=== PATIENT | male | born 1955 | race Caucasian/White ===

== ENCOUNTER 2020-09-08 11:00 | Observation (INO) | payer BC ==
[2020-09-08] MEDS ORDERED: Pantoprazole 40 MG Vial IVPUSH ONE (11:01)
[2020-09-08] MEDS ORDERED: Famotidine 20 MG/2 ML SDV IVPUSH ONE (11:01)
--- NOTE | 2020-09-08 11:01 | EDM.PDOC ---
ED HPI GENERAL MEDICAL PROBLEM - General Chief Complaint: Abdominal Pain Stated Complaint: Epigastric Pain Time Seen by Provider: 09/08/20 11:01 Source of Information: Reports: Patient, Old Records ([facility] chart/EMR) History Limitations: Reports: No Limitations - History of Present Illness INITIAL COMMENTS - FREE TEXT/NARRATIVE: The patient drove himself to the emergency room via private automobile for evaluation of initial 9/10 epigastric pressure, ache, and mild flatulence with symptoms starting about 1400 hrs. yesterday afternoon. The patient did have [place] food at noon in [place] yesterday with symptoms refractory to 1000 mg of Tylenol taken at 1630 hrs. and additional 60 mls of Pepto-Bismol at 1900 hrs. yesterday evening. His symptoms have improved somewhat to 6/10 on arrival, although the patient could not sleep throughout the night. He did have some possible mild diaphoresis at time of his severe pain, however no gross hematuria, colic, or other UTI symptoms. The patient has had similar symptoms in the past, including after Thanksgiving and [place] dinners last year and also about 4 months ago with no previous GI work-up. He denies any specific fatty food intolerance, however. No recent history of nausea, diarrhea, melena, gross hematochezia, etc. with normal bowel movement yesterday afternoon. The patient denies any chest pain/pressure, heart flutter, dizziness, orthostasis, orthopnea, paresthesias, recent decreased exercise tolerance, or any other anginal-type symptoms. The patient also denies any recent fever, cough, wheezing, dyspnea, etc.. Onset: Gradual Onset Date: 09/07/20 Onset Time: 14:00 Duration: Constant, Improving Location: Reports: Abdomen. Denies: Head, Face, Neck, Chest, Back, Pelvis, Upper Extremity, Left, Upper Extremity, Right, Radiates to Quality: Reports: Ache, Pressure, Same as Previous Episode Severity: Moderate Improves with: Reports: Medication Worsens with: Reports: None Context: Reports: Other (As above). 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 Denies: Allergic Rhinitis, Cataract, Glaucoma, Hard of Hearing, Macular Degeneration, Otitis Media, Retinal Detachment Other HEENT History: Patient wears reading glasses. Chronic bilateral tinnitus since his 20s. Cardiovascular History: Reports: High Cholesterol, Hypertension. Denies: Afib, Aneurysm, Arrhythmia, Blood Clots/VTE/DVT, CAD, Cardiomyopathy, Heart Failure, Heart Murmur, MN, PTCA, PVD, Stents, Syncope Respiratory History: Reports: None. Denies: Asthma, Bronchitis, Recurrent, COPD, Intubation, Difficult, Intubation, Previous, PE, Pneumonia, Recurrent, Pneumothorax, Sleep Apnea, TB Gastrointestinal History: Reports: Colon Polyp, Diverticulosis (Diverticulosis by CT scan.), GERD, Other (See Below). Denies: Bowel Obstruction, Celiac Disease, Cholelithiasis, Chronic Constipation, Chronic Diarrhea, Fecal Incontinence, Gastritis, GI Bleed, Hepatitis, Inflammatory Bowel Disease, Irritable Bowel Syndrome, Jaundice, Pancreatitis, PUD Other Gastrointestinal History: Benign colonic polyps diagnosed by colonoscopy in 2015 as below. Genitourinary History: Reports: BPH, Renal Calculus, Other (See Below). Denies: Acute Renal Failure, Chronic Renal Insuffiency, STD, Urinary Incontinence, UTI, Recurrent Other Genitourinary History: Probable left-sided urolithiasis on 05/06/2009 with spontaneous passage. Musculoskeletal History: Reports: Arthritis, Back Pain, Chronic, Fracture, Osteoarthritis, Other (See Below). Denies: Amputation, Gout, Neck Pain, Chronic, RA, SLE Other Musculoskeletal History: Left-sided clavicular fracture at age 13. Mild scoliosis with previous of borderline right-sided radiculopathy at L4 with multivessel degenerative disease and some lateral L4 right compartment compression with no surgery to this point. Neurological History: Reports: None. Denies: Cerebral Aneurysms, Concussion, CVA, Headaches, Chronic, Head Trauma, Migraines, MS, Neuropathy, Peripheral, Parkinson's, Seizure, TIA Psychiatric History: Reports: None. Denies: Abuse, Victim of, ADD, ADHD, Addiction, Anxiety, Depression, Psych Hospitalization(s), PTSD, Suicide Attempt, Suicidal Ideation Endocrine/Metabolic History: Reports: None. Denies: Diabetes, Type I, Diabetes, Type II, Diabetes Mellitus, Type 3c, Hypothyroidism, IDDM, Obesity/BMI 30+ Hematologic History: Reports: None. Denies: Anemia, Blood Transfusion(s), Iron Deficiency Immunologic History: Reports: None. Denies: AIDS, HIV, SLE Oncologic (Cancer) History: Reports: None. Denies: Basal Cell Carcinoma, Colon, Hodgkin's Lymphoma, Leukemia, Lymphoma, Malignant Melanoma, Non-Hodgkin's Lymphoma, Prostate, Squamous Cell Carcinoma Dermatologic History: Reports: None. Denies: Eczema, Psoriasis - Infectious Disease History Infectious Disease History: Reports: Chicken Pox, Mumps. Denies: C-Difficile, Measles, Meningitis, Mononucleosis, MRSA, Rheumatic Fever, Rubella, Shingles, TB, VRE - Past Surgical History Head Surgeries/Procedures: Reports: None HEENT Surgical History: Reports: LASIK, Oral Surgery, Other (See Below). Denies: Adenoidectomy, Cataract Surgery, Eye Surgery, Laser Surgery, Myringotomy w Tube(s), Naso-Sinus Surgery, Tonsillectomy Other HEENT Surgeries/Procedures: LASIK in about 2013. [place] teeth extraction x4 in the with additional tooth extractions. Cardiovascular Surgical History: Reports: None. Denies: Varicose Respiratory Surgical History: Reports: None. Denies: Thoracentesis GI Surgical History: Reports: Colonoscopy, Polypectomy, Other (See Below). Denies: Appendectomy, Cholecystectomy, EGD, Hernia, Abdominal, Hernia, Inguinal, Hernia Repair/Other Other GI Surgeries/Procedures: Colonoscopy in about 2014 with multiple polyp removals as above. Male Surgical History: Reports: Circumcision, Other (See Below). Denies: TURP-Transurethral Resection of Prostate, Vasectomy Other Male Surgeries/Procedures: Circumcision as an infant. Endocrine Surgical History: Reports: None. Denies: Thyroid Biopsy Neurological Surgical History: Reports: None. Denies: C-Spine, Discectomy, Laminectomy, Lumbar Spine, Sacral Spine, Spinal Fusion, Thoracic Spine, Vertebroplasty Musculoskeletal Surgical History: Reports: Arthroscopic Knee, Arthroscopic Procedure, Other (See Below). Denies: Carpal Tunnel, Ganglion Cyst, Joint Replacement, ORIF, Shoulder Surgery Other Musculoskeletal Surgeries/Procedures:: Right knee arthroscopic for torn meniscus in about 1987 with repeat procedure in about 2002. Oncologic Surgical History: Reports: None Dermatological Surgical History: Reports: None - Past Imaging History Past Imaging History: Reports: CAT Scan (CT of the brain on 02/10/2018. CT of the abdomen and pelvis on 05/09/2009.), MRI (MRI of the lumbar spine on 04/25/2020.) Social & Family History - Family History HEENT: Reports: None. Denies: Glaucoma, Macular Degeneration, Retinal Detachment Cardiac: Reports: PVD/COD, Other (See Below). Denies: Afib, Aneurysm, Arrhythmia, Blood Clots/VTE/DVT, Bypass, CAD, Heart Failure, High Cholesterol, Hypertension, MN, Pacemaker, Stent, Syncope Other Cardiac Family History: Brother with carotid occlusive disease with stent placement at age 66. Respiratory: Reports: None. Denies: Asthma, COPD, PE, Pneumothorax, Sleep Apnea GI: Denies: Celiac Disease, Cholelithiasis, Colon Polyps, GERD, GI bleed, Inflammatory Bowel Disease, Irritable Bowel Syndrome, PUD : Reports: None. Denies: Renal Calculus, Renal Disease/Insufficiency OBGYN: Reports: None. Denies: Endometriosis, Recurrent Spontaneous Musculoskeletal: Reports: None. Denies: Gout, RA, SLE Neurological: Reports: TIA, Other (See Below). Denies: Alzheimers Disease, Cerebral Aneurysms, CVA, Dementia, Migraines, MS, Parkinson's, Seizure Other Neurological Family History: Brother with TIA at age 66 secondary to carotid occlusive disease Psychiatric: Reports: None. Denies: Abuse, Victim of, ADD, ADHD, Depression, Psych Hospitalization(s), Psychosis, PTSD, Suicide Attempt Endocrine/Metabolic: Reports: None. Denies: Diabetes, Type I, Diabetes, type II, Diabetes Mellitus, Type 3c, Hypothyroidism, IDDM Hematologic: Reports: None. Denies: Anemia, SLE Immunologic: Reports: None. Denies: AIDS, HIV, SLE Dermatologic: Reports: None. Denies: Eczema, Psoriasis Oncologic: Reports: Prostate, Other (See Below). Denies: Colon, Hodgkin's Lymphoma, Leukemia, Lymphoma, Metastatic, Non-Hodgkin's Lymphoma, Skin Other Oncologic Family History: Brother with history of prostate cancer and subsequent prostatectomy at about age 65. - Tobacco Use Tobacco Use Status *Q: Never Tobacco User Tobacco Use Within Last Twelve Months: No Used Tobacco, but Quit: No Smoking Cessation Information Provided To Patient: No Second Hand Smoke Exposure: No Second Hand Smoke Education Provided: No - Caffeine Use Caffeine Use: Reports: Soda (1 soda every 2 weeks). Denies: Coffee, Energy Drinks, Tea - Alcohol Use Alcohol Use History: Yes Days Per Week of Alcohol Use: 0 Number of Drinks Per Day: 1 Number of Drinks Per Day Comment: Usually wine coolers 12 times per month. No previous DWIs, problems with alcohol abuse, etc. 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 ED EXAM, GI/ABD - Physical Exam Exam: See Below Exam Limited By: No Limitations General Appearance: Alert, WD/WN, Moderate Distress Eyes: Bilateral: Normal Appearance (No nystagmus), EOMI (PERRLA) Ears: Normal External Exam, Normal Canal, Hearing Grossly Normal, Normal TMs Nose: Normal Inspection, Normal Mucosa, No Blood Throat/Mouth: Normal Inspection, Normal Lips, Normal Teeth, Normal Gums, Normal Oropharynx, Normal Voice, No Airway Compromise. No: Dysphagia, Perioral Cyanosis Head: Atraumatic, Normocephalic. No: Facial Swelling, Facial Tenderness, Sinus Tenderness Neck: Normal Inspection, Supple, Non-Tender, Full Range of Motion. No: Carotid Bruit, Lymphadenopathy (L), Lymphadenopathy (R), Thyromegaly Respiratory/Chest: No Respiratory Distress, Lungs Clear, Normal Breath Sounds, No Accessory Muscle Use, Chest Non-Tender. No: Pleural Rub, Retractions Cardiovascular: Normal Peripheral Pulses, Regular Rate, Rhythm, No Edema, No Gallop, No JVD, No Murmur, No Rub. No: Gallop/S3, Gallop/S4, Friction Rub GI/Abdominal Exam: Normal Bowel Sounds, Soft, Non-Tender, No Organomegaly, No Distention, No Abnormal Bruit, No Mass, Pelvis Stable. No: Guarding (Male) Exam: Deferred Rectal (Males) Exam: Deferred Back Exam: Normal Inspection. No: CVA Tenderness (L), CVA Tenderness (R), Muscle Spasm Extremities: Normal Inspection, Normal Range of Motion, Non-Tender, No Pedal Edema, Normal Capillary Refill. No: Akash's Sign Neurological: Alert, Oriented, CN II-XII Intact, Normal Cognition, Normal Gait, Normal Reflexes (Negative Babinski's), No Motor/Sensory Deficits Psychiatric: Normal Affect, Normal Mood Skin Exam: Warm, Dry, Intact, Normal Color, No Rash. No: Diaphoretic, Wound/Incision Lymphatic: No Adenopathy #1 Interpretation EKG Date: 09/08/20 Time: 11:25 Rhythm: Other (Sinus bradycardia) Rate (Beats/Min): 55 [place]: RAD-Right [place] Deviation (Extended right cardiac axis) P-Wave: Present QRS: Other (0.13 seconds representing progressive repolarization changes versus beginning complete right bundle branch block) ST-T: Other (New T wave inversion in leads I, II, and aVL with resolved T wave inversion in lead III and stable borderline T wave inversion in lead V1) QT: Normal SD/PQ Interval: 0.16 seconds with moderate poor R wave progression in the anterior leads Comparison: Change From Previous EKG (As above since distant EKG on 04/08/2002) EKG Interpretation Comments: 1. New lateral wall cardiac ischemia 2. Sinus bradycardia Course - Vital Signs Last Recorded V/S: Last Vital Signs Temp 36.4 C 09/08/20 11:02 Pulse 60 09/08/20 12:30 Resp 16 09/08/20 12:30 BP 139/69 09/08/20 12:30 Pulse Ox 100 09/08/20 12:30 Vital Signs - 24 hr 09/08/20 09/08/20 09/08/20 11:02 11:20 11:44 Temperature [ 36.4 C Temporal] Pulse, 68 70 63 Peripheral [ Pulse Oximetry] Respiratory 20 16 16 Rate Blood Pressure Blood Pressure 143/75 H 147/74 H 142/75 H [Left Upper Arm ] O2 Sat by Pulse 97 99 98 Oximetry 09/08/20 09/08/20 09/08/20 11:46 11:57 12:30 Temperature [ Temporal] Pulse, 69 60 Peripheral [ Pulse Oximetry] Respiratory 16 16 Rate Blood Pressure 142/75 H Blood Pressure 127/68 139/69 [Left Upper Arm ] O2 Sat by Pulse 98 100 Oximetry - Orders/Labs/Meds Orders: Active Orders 24 hr Category Date Time Status Cardiac Monitoring [RC] . DIRECTED Care 09/08/20 11:03 Active EKG Documentation Completion [RC] ASDIRECTED Care 09/08/20 11:03 Active Peripheral IV Care [RC] . DIRECTED Care 09/08/20 11:02 Active Peripheral IV Care [RC] . DIRECTED Care 09/08/20 11:48 Active Nothing Per Oral Diet [DIET] Diet 09/08/20 Breakfast Active Abdomen Pelvis w Cont [CT] Stat Exams 09/08/20 12:56 Ordered Abdomen Series w Chest 1V [CR] Stat Exams 09/08/20 11:01 Taken Chest PE [Ang Chest] [CT] Stat Exams 09/08/20 12:56 Ordered Venous Doppler Lwr Ext Bi [US] Urgent Exams 09/08/20 12:55 Ordered CULTURE URINE [RM] Stat Lab 09/08/20 11:01 Ordered UA W/MICROSCOPIC [URIN] Stat Lab 09/08/20 11:01 Ordered Nitroglycerin [Nitrostat] Med 09/08/20 11:40 Stat 0.4 mg SL ONETIME STA Sodium Chloride 0.9% [Saline Flush] Med 09/08/20 11:01 Active 10 ml FLUSH ASDIRECTED PRN Obtain Past Medical Record [OM.PC] Urgent Oth 09/08/20 11:01 Active Peripheral IV Insertion Adult [OM.PC] Stat Oth 09/08/20 11:01 Ordered Resuscitation Status Stat Resus Stat 09/08/20 11:01 Ordered Medication Orders Nitroglycerin (Nitrostat) 0.4 mg SL ONETIME STA Stop: 09/09/20 11:41 Last Admin: 09/08/20 11:46 Dose: 0.4 mg Documented by: RHETT Sodium Chloride (Saline Flush) 10 ml FLUSH ASDIRECTED PRN PRN Reason: Keep Vein Open Labs: Laboratory Tests 09/08/20 09/08/20 09/08/20 Range/Units 11:00 11:00 11:00 WBC 16.4 H (4.0-10.2) K/uL RBC 5.05 (4.33-5.41) M/uL Hgb 14.9 (13.1-16.8) g/dL Hct 44.5 (39.0-49.0) % MCV 88.1 (84.0-98.0) fL MCH 29.5 (28.2-33.3) pg MCHC 33.5 (31.7-36.0) g/dL RDW 14.5 H (11.2-14.1) % Plt Count 280 (150-350) K/uL Neut % (Auto) 80.4 H (45.0-80.0) % Lymph % (Auto) 10.4 (10.0-50.0) % [place] % (Auto) 7.6 (2.0-14.0) % Eos % (Auto) 1.4 (0.0-5.0) % Baso % (Auto) 0.2 (0.0-2.0) % Neut # (Auto) 13.16 H (1.40-7.00) K/uL Lymph # (Auto) 1.71 (0.50-3.50) K/uL [place] # (Auto) 1.25 H (0.00-1.00) K/uL Eos # (Auto) 0.23 (0.00-0.50) K/uL Baso # (Auto) 0.04 (0.00-0.20) K/uL PT 9.9 (9.5-12.0) SEC INR 1.0 APTT 23.2 L (24.5-32.8) SEC D-Dimer, Quantitative (0-400) ng/mL Sodium (136-145) mmol/L Potassium (3.5-5.1) mmol/L Chloride (98-107) mmol/L Carbon Dioxide (21.0-32.0) mmol/L BUN (7-18) mg/dL Creatinine (0.51-1.17) mg/dL Est Cr Clr Drug Dosing Estimated GFR (MDRD) mL/min Glucose (74-106) mg/dL Lactic Acid (0.4-2.0) mmol/L Uric Acid (2.6-7.2) mg/dL Calcium (8.5-10.1) mg/dL Magnesium (1.8-2.4) mg/dL Total Bilirubin (0.2-1.0) mg/dL AST (15-37) U/L ALT (12-78) U/L Alkaline Phosphatase (46-116) IU/L Creatine Kinase (26-308) U/L Creatine Kinase Index (0.0-2.5) % CK-MB (CK-2) (0.00-3.60) ng/mL Troponin I (0.000-0.056) ng/mL NT-Pro-B Natriuret Pep (0-125) pg/mL Total Protein (6.4-8.2) g/dL Albumin (3.4-5.0) g/dL Amylase 36 (25-115) U/L Lipase (73-393) U/L 09/08/20 09/08/20 09/08/20 Range/Units 11:00 11:00 11:00 WBC (4.0-10.2) K/uL RBC (4.33-5.41) M/uL Hgb (13.1-16.8) g/dL Hct (39.0-49.0) % MCV (84.0-98.0) fL MCH (28.2-33.3) pg MCHC (31.7-36.0) g/dL RDW (11.2-14.1) % Plt Count (150-350) K/uL Neut % (Auto) (45.0-80.0) % Lymph % (Auto) (10.0-50.0) % [place] % (Auto) (2.0-14.0) % Eos % (Auto) (0.0-5.0) % Baso % (Auto) (0.0-2.0) % Neut # (Auto) (1.40-7.00) K/uL Lymph # (Auto) (0.50-3.50) K/uL Wake # (Auto) (0.00-1.00) K/uL Eos # (Auto) (0.00-0.50) K/uL Baso # (Auto) (0.00-0.20) K/uL PT (9.5-12.0) SEC INR APTT (24.5-32.8) SEC D-Dimer, Quantitative 470 H (0-400) ng/mL Sodium 139 (136-145) mmol/L Potassium 3.9 (3.5-5.1) mmol/L Chloride 103 (98-107) mmol/L Carbon Dioxide 24.3 (21.0-32.0) mmol/L BUN 17 (7-18) mg/dL Creatinine 0.90 (0.51-1.17) mg/dL Est Cr Clr Drug Dosing TNP Estimated GFR (MDRD) > 60 mL/min Glucose 124 H (74-106) mg/dL Lactic Acid 1.5 (0.4-2.0) mmol/L Uric Acid 4.6 (2.6-7.2) mg/dL Calcium 8.5 (8.5-10.1) mg/dL Magnesium 2.0 (1.8-2.4) mg/dL Total Bilirubin 1.0 (0.2-1.0) mg/dL AST 19 (15-37) U/L ALT 29 (12-78) U/L Alkaline Phosphatase 58 (46-116) IU/L Creatine Kinase 144 (26-308) U/L Creatine Kinase Index 1.3 (0.0-2.5) % CK-MB (CK-2) 1.90 (0.00-3.60) ng/mL Troponin I 0.031 (0.000-0.056) ng/mL NT-Pro-B Natriuret Pep 1279 H (0-125) pg/mL Total Protein 6.9 (6.4-8.2) g/dL Albumin 3.8 (3.4-5.0) g/dL Amylase (25-115) U/L Lipase 55 L (73-393) U/L Meds: Medications Generic Name Dose Route Start Last Admin Trade Name Freq PRN Reason Stop Dose Admin Nitroglycerin 0.4 mg 09/08/20 11:40 09/08/20 11:46 Nitrostat SL 09/09/20 11:41 0.4 mg ONETIME STA Administration Sodium Chloride 10 ml 09/08/20 11:01 Saline Flush FLUSH ASDIRECTED PRN Keep Vein Open Discontinued Medications Generic Name Dose Route Start Last Admin Trade Name Freq PRN Reason Stop Dose Admin Al Hydroxide/Mg Hydroxide 30 ml 09/08/20 12:29 09/08/20 12:40 Gi Cocktail PO 09/08/20 12:30 30 ml ONETIME ONE Administration Aspirin 324 mg 09/08/20 12:58 09/08/20 13:01 Aspirin CHEW 09/08/20 12:59 324 mg ONETIME ONE Administration Famotidine 40 mg 09/08/20 11:01 09/08/20 11:13 Pepcid IVPUSH 09/08/20 11:02 40 mg ONETIME ONE Administration Levofloxacin/Dextrose 500 mg/ 100 mls @ 100 mls/hr 09/08/20 11:45 09/08/20 11:51 Premix IV 09/08/20 12:44 100 mls/hr ONETIME ONE Administration Iopamidol 100 ml 09/08/20 13:04 Isovue-370 (76%) IVPUSH 09/08/20 13:05 ONETIME ONE Pantoprazole Sodium 40 mg 09/08/20 11:01 09/08/20 11:16 Protonix Iv IVPUSH 09/08/20 11:02 40 mg ONETIME ONE Administration Ticagrelor 180 mg 09/08/20 12:58 09/08/20 13:02 Brilinta PO 09/08/20 12:59 180 mg ONETIME ONE Administration Departure - Departure Time of Disposition: 13:05 Disposition: Refer to Observation Condition: Good Clinical Impression: Atypical chest pain, Peptic reflux disease, D-dimer, elevated Abdominal pain Qualifiers: Abdominal location: epigastric Qualified Code(s): R10.13 - Epigastric pain Osteoarthritis Qualifiers: Osteoarthritis location: multiple joints Osteoarthritis type: primary Qualified Code(s): M89.49 - Other hypertrophic osteoarthropathy, multiple sites CHF (congestive heart failure) Qualifiers: Heart failure type: unspecified Heart failure chronicity: acute Qualified Code(s): I50.9 - Heart failure, unspecified Hyperlipidemia Qualifiers: Hyperlipidemia type: unspecified Qualified Code(s): E78.5 - Hyperlipidemia, unspecified Hypertension Qualifiers: Hypertension type: essential hypertension Qualified Code(s): I10 - Essential (primary) hypertension - Discharge Information *PRESCRIPTION DRUG MONITORING PROGRAM REVIEWED*: Not Applicable *COPY OF PRESCRIPTION DRUG MONITORING REPORT IN PATIENT SHIRA: Not Applicable Sepsis Event Note (ED) - Focused Exam Vital Signs: Vital Signs Temp Pulse Resp BP BP Pulse Ox 09/08/20 12:30 60 16 139/69 100 09/08/20 11:57 69 16 127/68 98 09/08/20 11:46 142/75 H 09/08/20 11:44 63 16 142/75 H 98 09/08/20 11:20 70 16 147/74 H 99 09/08/20 11:02 36.4 C 68 20 143/75 H 97 - Problem List & Annotations (1) Abdominal pain SNOMED Code(s): 29147934 Code(s): R10.9 - UNSPECIFIED ABDOMINAL PAIN Status: Acute Priority: High Current Visit: Yes Onset Date: 09/07/20 Annotation/Comment:: Symptoms improved in the emergency room with high-dose IV Pepcid and IV Protonix with somewhat refractory symptoms and additional green lizard required. Suspect cholelithiasis with normal amylase and lipase. No significant leukocytosis with no fever. Lactic acid level is normal with no clinical evidence of sepsis. IV Levaquin initiated in the emergency room with initiation of IV Flagyl shortly after admission. Abdominal CT scan with IV contrast to be conducted shortly after admission. Further surgical/GI consultation/work-up depending on his clinical course. Qualifiers: Abdominal location: epigastric Qualified Code(s): R10.13 - Epigastric pain (2) Atypical chest pain SNOMED Code(s): 616299741 Code(s): R07.89 - OTHER CHEST PAIN Status: Acute Priority: High Current Visit: Yes Onset Date: 09/08/20 Annotation/Comment:: Note evidence of lateral wall cardiac ischemia with no true chest pain or anginal type symptoms prior to arrival to this facility. Note that ASA and Brilinta were given after EKG was obtained and prior to admission. Secondary to d-dimer elevation patient will also receive subcutaneous Lovenox at the cardiac/VTE dose with venous Doppler studies and a CT of the chest to be conducted shortly after admission. Initiate standard rule out [place] orders. Cardiology consultation depending on his clinical course. (3) CHF (congestive heart failure) SNOMED Code(s): 74766027 Code(s): I50.9 - HEART FAILURE, UNSPECIFIED Status: Acute Priority: High Current Visit: Yes Onset Date: 09/08/20 Annotation/Comment:: Note BNP elevation. Initiate IV Lasix with caution shortly after admission. Consider echocardiogram on an outpatient basis. Qualifiers: Heart failure type: unspecified Heart failure chronicity: acute Qualified Code(s): I50.9 - Heart failure, unspecified (4) D-dimer, elevated SNOMED Code(s): 203940700 Code(s): R79.89 - OTHER SPECIFIED ABNORMAL FINDINGS OF BLOOD CHEMISTRY Status: Acute Priority: High Current Visit: Yes Onset Date: 09/08/20 Annotation/Comment:: As above (5) Osteoarthritis SNOMED Code(s): 807849240 Code(s): M19.90 - UNSPECIFIED OSTEOARTHRITIS, UNSPECIFIED SITE Status: Chronic Priority: Medium Current Visit: Yes Annotation/Comment:: Stable by history. Qualifiers: Osteoarthritis location: multiple joints Osteoarthritis type: primary Qualified Code(s): M89.49 - Other hypertrophic osteoarthropathy, multiple sites (6) Peptic reflux disease SNOMED Code(s): 241721227 Code(s): K21.9 - GASTRO-ESOPHAGEAL REFLUX DISEASE WITHOUT ESOPHAGITIS Status: Chronic Priority: Medium Current Visit: Yes Annotation/Comment:: High-dose IV Pepcid and IV Protonix given as above. (7) Hyperlipidemia SNOMED Code(s): 37907763 Code(s): E78.5 - HYPERLIPIDEMIA, UNSPECIFIED Status: Chronic Priority: Medium Current Visit: Yes Annotation/Comment:: Currently under therapy. Lipid panel and glycosylated hemoglobin in the a.m. Qualifiers: Hyperlipidemia type: unspecified Qualified Code(s): E78.5 - Hyperlipidemia, unspecified (8) Hypertension SNOMED Code(s): 42824798 Code(s): I10 - ESSENTIAL (PRIMARY) HYPERTENSION Status: Chronic Priority: Medium Current Visit: Yes Annotation/Comment:: Currently under therapy. Blood pressure stable in the emergency room. Qualifiers: Hypertension type: essential hypertension Qualified Code(s): I10 - Essential (primary) hypertension - Problem List Review Problem List Initiated/Reviewed/Updated: Yes - My Orders Last 24 Hours: My Active Orders 09/08/20 Breakfast Nothing Per Oral Diet [DIET] 09/08/20 11:01 Abdomen Series w Chest 1V [CR] Stat CULTURE URINE [RM] Stat UA W/MICROSCOPIC [URIN] Stat Sodium Chloride 0.9% [Saline Flush] 10 ml FLUSH ASDIRECTED PRN Obtain Past Medical Record [OM.PC] Urgent Peripheral IV Insertion Adult [OM.PC] Stat Resuscitation Status Stat 09/08/20 11:02 Peripheral IV Care [RC] . DIRECTED 09/08/20 11:03 Cardiac Monitoring [RC] . DIRECTED EKG Documentation Completion [RC] ASDIRECTED 09/08/20 11:40 Nitroglycerin [Nitrostat] 0.4 mg SL ONETIME STA 09/08/20 11:48 Peripheral IV Care [RC] . DIRECTED 09/08/20 12:55 Venous Doppler Lwr Ext Bi [US] Urgent 09/08/20 12:56 Abdomen Pelvis w Cont [CT] Stat Chest PE [Ang Chest] [CT] Stat - Assessment/Plan Admission H&P: Please use this note as an admission H&P Last 24 Hours: My Active Orders 09/08/20 Breakfast Nothing Per Oral Diet [DIET] 09/08/20 11:01 Abdomen Series w Chest 1V [CR] Stat CULTURE URINE [RM] Stat UA W/MICROSCOPIC [URIN] Stat Sodium Chloride 0.9% [Saline Flush] 10 ml FLUSH ASDIRECTED PRN Obtain Past Medical Record [OM.PC] Urgent Peripheral IV Insertion Adult [OM.PC] Stat Resuscitation Status Stat 09/08/20 11:02 Peripheral IV Care [RC] . DIRECTED 09/08/20 11:03 Cardiac Monitoring [RC] . DIRECTED EKG Documentation Completion [RC] ASDIRECTED 09/08/20 11:40 Nitroglycerin [Nitrostat] 0.4 mg SL ONETIME STA 09/08/20 11:48 Peripheral IV Care [RC] . DIRECTED 09/08/20 12:55 Venous Doppler Lwr Ext Bi [US] Urgent 09/08/20 12:56 Abdomen Pelvis w Cont [CT] Stat Chest PE [Ang Chest] [CT] Stat Assessment:: As above. Plan: As above. Extensive precautions were given to the patient, who is in agreement with the treatment plan. The patient's condition is stable enough for observation status and general supervision.
[2020-09-08 11:36] LABS: CHLORIDE,CL 103 mmol/L (98-107); SODIUM,NA 139 mmol/L (136-145)
[2020-09-08] MEDS ORDERED: Nitroglycerin 0.4 MG Tab.SL SL STA (11:40)
[2020-09-08 11:43] LABS: PTT,PARTIAL THROMBOPLSTIN TIME 23.2 SEC (24.5-32.8)
[2020-09-08] MEDS ORDERED: Levofloxacin/Dextrose 5%-Water 500 MG in Premix Bag 1 BAG IV ONE (11:45)
[2020-09-08] MEDS ORDERED: GI Cocktail Oral Solution 30 ML PO ONE (12:29)
[2020-09-08] MEDS ORDERED: Ticagrelor 90 MG Tab PO ONE (12:58)
[2020-09-08] MEDS ORDERED: Aspirin 81 MG Tab.Chew CHEW ONE (12:58)
[2020-09-08] MEDS ORDERED: Iopamidol 755 Mg/ML 100 ML Bottle IVPUSH ONE (13:04)
[2020-09-08] MEDS ORDERED: Temazepam 15 MG Cap PO PRN (13:18)
[2020-09-08] MEDS ORDERED: Sodium Chloride 0.9% 10 ML Syringe FLUSH PRN (13:18)
[2020-09-08] MEDS ORDERED: Enoxaparin 80 MG/0.8 ML Syringe SUBCUT SCH (14:00)
[2020-09-08] MEDS ORDERED: Acetaminophen 325 MG Tab PO PRN (14:00)
[2020-09-08] MEDS: Furosemide 40 MG/4 ML VIAL IVPUSH SCH ×2 (14:10→21:32)
[2020-09-08] MEDS: metroNIDAZOLE/Normal Saline 500 MG in Premix Bag 1 BAG IV SCH ×2 (14:10→21:32)
[2020-09-08] MEDS: Sodium Chloride 0.9% 10 ML Syringe FLUSH PRN ×2 (14:11→21:33)
[2020-09-08] MEDS: Potassium Chloride 20 MEQ Tab.ER PO SCH (17:32)
[2020-09-08] MEDS: Ezetimibe 10 MG Tab PO SCH (20:04)
[2020-09-08] MEDS: Lisinopril 5 MG Tab PO SCH (20:04)
[2020-09-09] MEDS: Enoxaparin 80 MG/0.8 ML Syringe SUBCUT SCH ×2 (05:14→17:55)
[2020-09-09] MEDS: Sodium Chloride 0.9% 10 ML Syringe FLUSH PRN ×2 (05:14→14:07)
[2020-09-09] MEDS: Furosemide 40 MG/4 ML VIAL IVPUSH SCH ×3 (05:14→21:46)
[2020-09-09] MEDS: metroNIDAZOLE/Normal Saline 500 MG in Premix Bag 1 BAG IV SCH ×3 (05:15→21:47)
[2020-09-09 07:41] LABS: HEMOGLOBIN A1C 5.9 % (4.3-5.7)
[2020-09-09 08:16] LABS: CHLORIDE,CL 100 mmol/L (98-107); SODIUM,NA 138 mmol/L (136-145)
[2020-09-09] MEDS: Potassium Chloride 20 MEQ Tab.ER PO SCH ×3 (08:51→17:55)
--- NOTE | 2020-09-09 09:48 | PCM.PN ---
- General Info Date of Service: 09/09/20 Admission Dx/Problem (Free Text): 1. Abdominal pain with probable acute holecystitis 2. Atypical chest pain 3. D-dimer elevation 4. CHF Functional Status: Reports: Pain Controlled, Tolerating Diet, Ambulating, Urinating. Denies: New Symptoms, Incentive Spirometry Pain Score: 0 - Review of Systems General: Denies: Fever (Afebrile this morning with maximum temperature of 37.7 degrees during the last 24 hours), Weakness, Fatigue, Malaise, Chills, Night Sweats, Appetite (Improving slowly) HEENT: Reports: No Symptoms. Denies: Contact Lenses, Dysphasia, Ear Pain, Eye Pain, Glasses, Headaches, Post Nasal Drip, Sinus Congestion, Sore Throat, Rhinitis, Visual Changes Pulmonary: Reports: No Symptoms. Denies: Shortness of Breath, Pleuritic Chest Pain, Cough Cardiovascular: Reports: No Symptoms. Denies: Chest Pain, Palpitations, Dyspnea on Exertion, Orthopnea, PND, Edema, Lightheadedness Gastrointestinal: Reports: No Symptoms. Denies: Abdominal Pain, Constipation (, Although no bowel movement since admission with minimal oral intake), Decreased Appetite, Diarrhea, Difficulty Swallowing, Flatus, Hematochezia, Melena, Nausea, Vomiting Genitourinary: Reports: No Symptoms. Denies: Dysuria, Frequency, Burning, Pain, Urgency, Hematuria, Retention, Flank Pain Musculoskeletal: Reports: No Symptoms. Denies: Neck Pain, Shoulder Pain, Back Pain Skin: Reports: Bruising (Mild ecchymosis at subcutaneous injection sites). Denies: Cyanosis, Jaundice, Mottled, Pallor, Diaphoresis, Dryness, Pruritis, Rash Neurological: Reports: No Symptoms. Denies: Confusion, Dizziness, Numbness, P aresthesia, Pre-Existing Deficit, Tingling, Weakness Psychiatric: Reports: No Symptoms. Denies: Confusion, Depression, Anxiety, Agitation, Cravings, Hallucinations - Patient Data Vitals - Most Recent: Last Vital Signs Temp 36.6 C 09/09/20 07:38 Pulse 89 09/09/20 07:38 Resp 16 09/09/20 07:38 BP 117/78 09/09/20 07:38 Pulse Ox 96 09/09/20 07:38 Vital Signs - 24 hr 09/08/20 09/08/20 09/08/20 11:02 11:20 11:44 Temperature [ Oral] Temperature [ 36.4 C Temporal] Pulse, 68 70 63 Peripheral [ Pulse Oximetry] Respiratory 20 16 16 Rate Blood Pressure Blood Pressure 143/75 H 147/74 H 142/75 H [Left Upper Arm ] O2 Sat by Pulse 97 99 98 Oximetry 09/08/20 09/08/20 09/08/20 11:46 11:57 12:30 Temperature [ Oral] Temperature [ Temporal] Pulse, 69 60 Peripheral [ Pulse Oximetry] Respiratory 16 16 Rate Blood Pressure 142/75 H Blood Pressure 127/68 139/69 [Left Upper Arm ] O2 Sat by Pulse 98 100 Oximetry 09/08/20 09/08/20 09/08/20 13:41 16:00 18:00 Temperature [ Oral] Temperature [ 36.8 C 36.4 C 37.3 C Temporal] Pulse, 60 58 L 64 Peripheral [ Pulse Oximetry] Respiratory 16 16 17 Rate Blood Pressure Blood Pressure 134/71 138/79 137/71 [Left Upper Arm ] O2 Sat by Pulse 100 99 98 Oximetry 09/08/20 09/08/20 09/09/20 19:28 20:04 00:00 Temperature [ Oral] Temperature [ 37.5 C 37.7 C Temporal] Pulse, 68 73 Peripheral [ Pulse Oximetry] Respiratory 16 18 Rate Blood Pressure 122/75 Blood Pressure 122/75 124/75 [Left Upper Arm ] O2 Sat by Pulse 97 95 Oximetry 09/09/20 09/09/20 04:00 07:38 Temperature [ 36.9 C 36.6 C Oral] Temperature [ Temporal] Pulse, 82 89 Peripheral [ Pulse Oximetry] Respiratory 18 16 Rate Blood Pressure Blood Pressure 119/75 117/78 [Left Upper Arm ] O2 Sat by Pulse 96 96 Oximetry Weight - Most Recent: 90.174 kg I&O - Last 24 Hours: Intake & Output 09/08/20 09/09/20 09/09/20 22:59 06:59 14:59 Intake Total 240 400 Balance 240 400 Imaging Impressions - Last 24 Hours: Venous Doppler studies of the lower extremities on 09/08/2020 were negative for DVT CTA of the chest using PE protocol on 09/08/2020 were negative for PE with incidental probable acute cholecystitis/cholelithiasis, benign bilateral renal cysts and probable benign 3 mm left upper lobe pulmonary nodule CT of the abdomen and pelvis with IV contrast on 09/08/2020 positive for acute cholecystitis with significant cholelithiasis and gallstone present in the neck of the gallbladder. 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 Lab Results Last 24 Hours: Laboratory Results - last 24 hr 09/08/20 09/08/20 09/08/20 Range/Units 11:00 11:00 11:00 WBC 16.4 H (4.0-10.2) K/uL RBC 5.05 (4.33-5.41) M/uL Hgb 14.9 (13.1-16.8) g/dL Hct 44.5 (39.0-49.0) % MCV 88.1 (84.0-98.0) fL MCH 29.5 (28.2-33.3) pg MCHC 33.5 (31.7-36.0) g/dL RDW 14.5 H (11.2-14.1) % Plt Count 280 (150-350) K/uL Neut % (Auto) 80.4 H (45.0-80.0) % Lymph % (Auto) 10.4 (10.0-50.0) % Casey % (Auto) 7.6 (2.0-14.0) % Eos % (Auto) 1.4 (0.0-5.0) % Baso % (Auto) 0.2 (0.0-2.0) % Neut # (Auto) 13.16 H (1.40-7.00) K/uL Lymph # (Auto) 1.71 (0.50-3.50) K/uL Casey # (Auto) 1.25 H (0.00-1.00) K/uL Eos # (Auto) 0.23 (0.00-0.50) K/uL Baso # (Auto) 0.04 (0.00-0.20) K/uL PT 9.9 (9.5-12.0) SEC INR 1.0 APTT 23.2 L (24.5-32.8) SEC D-Dimer, Quantitative (0-400) ng/mL Sodium (136-145) mmol/L Potassium (3.5-5.1) mmol/L Chloride (98-107) mmol/L Carbon Dioxide (21.0-32.0) mmol/L BUN (7-18) mg/dL Creatinine (0.51-1.17) mg/dL Est Cr Clr Drug Dosing Estimated GFR (MDRD) mL/min Glucose (74-106) mg/dL Hemoglobin A1c (4.3-5.7) % Lactic Acid (0.4-2.0) mmol/L Uric Acid (2.6-7.2) mg/dL Calcium (8.5-10.1) mg/dL Magnesium (1.8-2.4) mg/dL Total Bilirubin (0.2-1.0) mg/dL AST (15-37) U/L ALT (12-78) U/L Alkaline Phosphatase (46-116) IU/L Creatine Kinase (26-308) U/L Creatine Kinase Index (0.0-2.5) % CK-MB (CK-2) (0.00-3.60) ng/mL Troponin I (0.000-0.056) ng/mL NT-Pro-B Natriuret Pep (0-125) pg/mL Total Protein (6.4-8.2) g/dL Albumin (3.4-5.0) g/dL Triglycerides (30-150) mg/dL Cholesterol (100-200) mg/dL LDL Cholesterol, Calc (0-100) mg/dL HDL Cholesterol (40-60) mg/dL Amylase 36 (25-115) U/L Lipase (73-393) U/L Specimen Type Urine Color Urine Appearance Urine pH (5.0-9.0) Ur Specific [place] (1.005-1.030) Urine Protein (NEGATIVE) mg/dL Urine Glucose (UA) (NEGATIVE) mg/dL Urine Ketones (NEGATIVE) mg/dL Urine Occult Blood (NEGATIVE) Urine Nitrite (NEGATIVE) Urine Bilirubin (NEGATIVE) Urine Urobilinogen (0.2-1.0) E.U./dL Ur Leukocyte Esterase (NEGATIVE) Urine RBC /HPF Urine WBC /HPF Ur Epithelial Cells /LPF Urine Bacteria (NONE TO FEW) /HPF 09/08/20 09/08/20 09/08/20 Range/Units 11:00 11:00 11:00 WBC (4.0-10.2) K/uL RBC (4.33-5.41) M/uL Hgb (13.1-16.8) g/dL Hct (39.0-49.0) % MCV (84.0-98.0) fL MCH (28.2-33.3) pg MCHC (31.7-36.0) g/dL RDW (11.2-14.1) % Plt Count (150-350) K/uL Neut % (Auto) (45.0-80.0) % Lymph % (Auto) (10.0-50.0) % Casey % (Auto) (2.0-14.0) % Eos % (Auto) (0.0-5.0) % Baso % (Auto) (0.0-2.0) % Neut # (Auto) (1.40-7.00) K/uL Lymph # (Auto) (0.50-3.50) K/uL Casey # (Auto) (0.00-1.00) K/uL Eos # (Auto) (0.00-0.50) K/uL Baso # (Auto) (0.00-0.20) K/uL PT (9.5-12.0) SEC INR APTT (24.5-32.8) SEC D-Dimer, Quantitative 470 H (0-400) ng/mL Sodium 139 (136-145) mmol/L Potassium 3.9 (3.5-5.1) mmol/L Chloride 103 (98-107) mmol/L Carbon Dioxide 24.3 (21.0-32.0) mmol/L BUN 17 (7-18) mg/dL Creatinine 0.90 (0.51-1.17) mg/dL Est Cr Clr Drug Dosing TNP Estimated GFR (MDRD) > 60 mL/min Glucose 124 H (74-106) mg/dL Hemoglobin A1c (4.3-5.7) % Lactic Acid 1.5 (0.4-2.0) mmol/L Uric Acid 4.6 (2.6-7.2) mg/dL Calcium 8.5 (8.5-10.1) mg/dL Magnesium 2.0 (1.8-2.4) mg/dL Total Bilirubin 1.0 (0.2-1.0) mg/dL AST 19 (15-37) U/L ALT 29 (12-78) U/L Alkaline Phosphatase 58 (46-116) IU/L Creatine Kinase 144 (26-308) U/L Creatine Kinase Index 1.3 (0.0-2.5) % CK-MB (CK-2) 1.90 (0.00-3.60) ng/mL Troponin I 0.031 (0.000-0.056) ng/mL NT-Pro-B Natriuret Pep 1279 H (0-125) pg/mL Total Protein 6.9 (6.4-8.2) g/dL Albumin 3.8 (3.4-5.0) g/dL Triglycerides (30-150) mg/dL Cholesterol (100-200) mg/dL LDL Cholesterol, Calc (0-100) mg/dL HDL Cholesterol (40-60) mg/dL Amylase (25-115) U/L Lipase 55 L (73-393) U/L Specimen Type Urine Color Urine Appearance Urine pH (5.0-9.0) Ur Specific [place] (1.005-1.030) Urine Protein (NEGATIVE) mg/dL Urine Glucose (UA) (NEGATIVE) mg/dL Urine Ketones (NEGATIVE) mg/dL Urine Occult Blood (NEGATIVE) Urine Nitrite (NEGATIVE) Urine Bilirubin (NEGATIVE) Urine Urobilinogen (0.2-1.0) E.U./dL Ur Leukocyte Esterase (NEGATIVE) Urine RBC /HPF Urine WBC /HPF Ur Epithelial Cells /LPF Urine Bacteria (NONE TO FEW) /HPF 09/08/20 09/08/20 09/08/20 Range/Units 15:00 15:30 21:20 WBC (4.0-10.2) K/uL RBC (4.33-5.41) M/uL Hgb (13.1-16.8) g/dL Hct (39.0-49.0) % MCV (84.0-98.0) fL MCH (28.2-33.3) pg MCHC (31.7-36.0) g/dL RDW (11.2-14.1) % Plt Count (150-350) K/uL Neut % (Auto) (45.0-80.0) % Lymph % (Auto) (10.0-50.0) % Casey % (Auto) (2.0-14.0) % Eos % (Auto) (0.0-5.0) % Baso % (Auto) (0.0-2.0) % Neut # (Auto) (1.40-7.00) K/uL Lymph # (Auto) (0.50-3.50) K/uL Casey # (Auto) (0.00-1.00) K/uL Eos # (Auto) (0.00-0.50) K/uL Baso # (Auto) (0.00-0.20) K/uL PT (9.5-12.0) SEC INR APTT (24.5-32.8) SEC D-Dimer, Quantitative (0-400) ng/mL Sodium (136-145) mmol/L Potassium (3.5-5.1) mmol/L Chloride (98-107) mmol/L Carbon Dioxide (21.0-32.0) mmol/L BUN (7-18) mg/dL Creatinine (0.51-1.17) mg/dL Est Cr Clr Drug Dosing Estimated GFR (MDRD) mL/min Glucose (74-106) mg/dL Hemoglobin A1c (4.3-5.7) % Lactic Acid (0.4-2.0) mmol/L Uric Acid (2.6-7.2) mg/dL Calcium (8.5-10.1) mg/dL Magnesium (1.8-2.4) mg/dL Total Bilirubin (0.2-1.0) mg/dL AST (15-37) U/L ALT (12-78) U/L Alkaline Phosphatase (46-116) IU/L Creatine Kinase 150 141 (26-308) U/L Creatine Kinase Index 1.1 0.8 (0.0-2.5) % CK-MB (CK-2) 1.70 1.10 (0.00-3.60) ng/mL Troponin I 0.036 0.015 (0.000-0.056) ng/mL NT-Pro-B Natriuret Pep (0-125) pg/mL Total Protein (6.4-8.2) g/dL Albumin (3.4-5.0) g/dL Triglycerides (30-150) mg/dL Cholesterol (100-200) mg/dL LDL Cholesterol, Calc (0-100) mg/dL HDL Cholesterol (40-60) mg/dL Amylase (25-115) U/L Lipase (73-393) U/L Specimen Type Urinvoid Urine Color Yellow Urine Appearance Clear Urine pH 6.0 (5.0-9.0) Ur Specific [place] 1.015 (1.005-1.030) Urine Protein Negative (NEGATIVE) mg/dL Urine Glucose (UA) Negative (NEGATIVE) mg/dL Urine Ketones Negative (NEGATIVE) mg/dL Urine Occult Blood Negative (NEGATIVE) Urine Nitrite Negative (NEGATIVE) Urine Bilirubin Negative (NEGATIVE) Urine Urobilinogen 0.2 (0.2-1.0) E.U./dL Ur Leukocyte Esterase Negative (NEGATIVE) Urine RBC Not seen /HPF Urine WBC Not seen /HPF Ur Epithelial Cells Occasional /LPF Urine Bacteria Occasional (NONE TO FEW) /HPF 09/09/20 09/09/20 09/09/20 Range/Units 07:15 07:15 07:15 WBC 13.6 H (4.0-10.2) K/uL RBC 5.51 H (4.33-5.41) M/uL Hgb 16.3 (13.1-16.8) g/dL Hct 48.2 (39.0-49.0) % MCV 87.5 (84.0-98.0) fL MCH 29.6 (28.2-33.3) pg MCHC 33.8 (31.7-36.0) g/dL RDW 14.8 H (11.2-14.1) % Plt Count 266 (150-350) K/uL Neut % (Auto) 75.8 (45.0-80.0) % Lymph % (Auto) 10.4 (10.0-50.0) % Casey % (Auto) 9.0 (2.0-14.0) % Eos % (Auto) 4.6 (0.0-5.0) % Baso % (Auto) 0.2 (0.0-2.0) % Neut # (Auto) 10.32 H (1.40-7.00) K/uL Lymph # (Auto) 1.42 (0.50-3.50) K/uL Casey # (Auto) 1.22 H (0.00-1.00) K/uL Eos # (Auto) 0.62 H (0.00-0.50) K/uL Baso # (Auto) 0.03 (0.00-0.20) K/uL PT (9.5-12.0) SEC INR APTT (24.5-32.8) SEC D-Dimer, Quantitative 676 H (0-400) ng/mL Sodium 138 (136-145) mmol/L Potassium 3.7 (3.5-5.1) mmol/L Chloride 100 (98-107) mmol/L Carbon Dioxide 24.9 (21.0-32.0) mmol/L BUN 17 (7-18) mg/dL Creatinine 1.03 (0.51-1.17) mg/dL Est Cr Clr Drug Dosing 74.81 Estimated GFR (MDRD) > 60 mL/min Glucose 136 H (74-106) mg/dL Hemoglobin A1c (4.3-5.7) % Lactic Acid (0.4-2.0) mmol/L Uric Acid (2.6-7.2) mg/dL Calcium 8.7 (8.5-10.1) mg/dL Magnesium (1.8-2.4) mg/dL Total Bilirubin 1.9 H (0.2-1.0) mg/dL AST 21 (15-37) U/L ALT 29 (12-78) U/L Alkaline Phosphatase 62 (46-116) IU/L Creatine Kinase 113 (26-308) U/L Creatine Kinase Index 0.7 (0.0-2.5) % CK-MB (CK-2) 0.80 (0.00-3.60) ng/mL Troponin I 0.001 (0.000-0.056) ng/mL NT-Pro-B Natriuret Pep 505 H (0-125) pg/mL Total Protein 7.4 (6.4-8.2) g/dL Albumin 3.9 (3.4-5.0) g/dL Triglycerides 111 (30-150) mg/dL Cholesterol 155 (100-200) mg/dL LDL Cholesterol, Calc 81 (0-100) mg/dL HDL Cholesterol 52 (40-60) mg/dL Amylase 37 (25-115) U/L Lipase 85 (73-393) U/L Specimen Type Urine Color Urine Appearance Urine pH (5.0-9.0) Ur Specific [place] (1.005-1.030) Urine Protein (NEGATIVE) mg/dL Urine Glucose (UA) (NEGATIVE) mg/dL Urine Ketones (NEGATIVE) mg/dL Urine Occult Blood (NEGATIVE) Urine Nitrite (NEGATIVE) Urine Bilirubin (NEGATIVE) Urine Urobilinogen (0.2-1.0) E.U./dL Ur Leukocyte Esterase (NEGATIVE) Urine RBC /HPF Urine WBC /HPF Ur Epithelial Cells /LPF Urine Bacteria (NONE TO FEW) /HPF 09/09/20 Range/Units 07:15 WBC (4.0-10.2) K/uL RBC (4.33-5.41) M/uL Hgb (13.1-16.8) g/dL Hct (39.0-49.0) % MCV (84.0-98.0) fL MCH (28.2-33.3) pg MCHC (31.7-36.0) g/dL RDW (11.2-14.1) % Plt Count (150-350) K/uL Neut % (Auto) (45.0-80.0) % Lymph % (Auto) (10.0-50.0) % Casey % (Auto) (2.0-14.0) % Eos % (Auto) (0.0-5.0) % Baso % (Auto) (0.0-2.0) % Neut # (Auto) (1.40-7.00) K/uL Lymph # (Auto) (0.50-3.50) K/uL Casey # (Auto) (0.00-1.00) K/uL Eos # (Auto) (0.00-0.50) K/uL Baso # (Auto) (0.00-0.20) K/uL PT (9.5-12.0) SEC INR APTT (24.5-32.8) SEC D-Dimer, Quantitative (0-400) ng/mL Sodium (136-145) mmol/L Potassium (3.5-5.1) mmol/L Chloride (98-107) mmol/L Carbon Dioxide (21.0-32.0) mmol/L BUN (7-18) mg/dL Creatinine (0.51-1.17) mg/dL Est Cr Clr Drug Dosing Estimated GFR (MDRD) mL/min Glucose (74-106) mg/dL Hemoglobin A1c 5.9 H (4.3-5.7) % Lactic Acid (0.4-2.0) mmol/L Uric Acid (2.6-7.2) mg/dL Calcium (8.5-10.1) mg/dL Magnesium (1.8-2.4) mg/dL Total Bilirubin (0.2-1.0) mg/dL AST (15-37) U/L ALT (12-78) U/L Alkaline Phosphatase (46-116) IU/L Creatine Kinase (26-308) U/L Creatine Kinase Index (0.0-2.5) % CK-MB (CK-2) (0.00-3.60) ng/mL Troponin I (0.000-0.056) ng/mL NT-Pro-B Natriuret Pep (0-125) pg/mL Total Protein (6.4-8.2) g/dL Albumin (3.4-5.0) g/dL Triglycerides (30-150) mg/dL Cholesterol (100-200) mg/dL LDL Cholesterol, Calc (0-100) mg/dL HDL Cholesterol (40-60) mg/dL Amylase (25-115) U/L Lipase (73-393) U/L Specimen Type Urine Color Urine Appearance Urine pH (5.0-9.0) Ur Specific [place] (1.005-1.030) Urine Protein (NEGATIVE) mg/dL Urine Glucose (UA) (NEGATIVE) mg/dL Urine Ketones (NEGATIVE) mg/dL Urine Occult Blood (NEGATIVE) Urine Nitrite (NEGATIVE) Urine Bilirubin (NEGATIVE) Urine Urobilinogen (0.2-1.0) E.U./dL Ur Leukocyte Esterase (NEGATIVE) Urine RBC /HPF Urine WBC /HPF Ur Epithelial Cells /LPF Urine Bacteria (NONE TO FEW) /HPF Andrew Results Last 24 Hours: Urine culture and sensitivity is pending Med Orders - Current: Current Medications Acetaminophen (Tylenol) 650 mg PO Q4H PRN PRN Reason: Pain Ezetimibe (Zetia) 10 mg PO BEDTIME [facility] Last Admin: 09/08/20 20:04 Dose: 10 mg Documented by: Enoxaparin Sodium (Lovenox) 80 mg SUBCUT BID@0600,1800 [facility] Last Admin: 09/09/20 05:14 Dose: 80 mg Documented by: Furosemide (Lasix) 40 mg IVPUSH Q8H [facility] Last Admin: 09/09/20 05:14 Dose: 40 mg Documented by: Metronidazole 500 mg/ Premix 100 mls @ 100 mls/hr IV Q8H [facility] Last Admin: 09/09/20 05:15 Dose: 100 mls/hr Documented by: Influenza Virus Vaccine (Pharmacy To Dose - Influenza Vaccine) 1 each IM ONETIME ONE Stop: 09/08/20 20:01 Lisinopril (Prinivil) 5 mg PO BEDTIME [facility] Last Admin: 09/08/20 20:04 Dose: 5 mg Documented by: Nitroglycerin (Nitrostat) 0.4 mg SL ONETIME STA Stop: 09/09/20 11:41 Last Admin: 09/08/20 11:46 Dose: 0.4 mg Documented by: Potassium Chloride (Klor-Con M20) 20 meq PO TID [facility] Last Admin: 09/09/20 08:51 Dose: 20 meq Documented by: Sodium Chloride (Saline Flush) 10 ml FLUSH ASDIRECTED PRN PRN Reason: Keep Vein Open Last Admin: 09/09/20 05:14 Dose: 10 ml Documented by: Sodium Chloride (Saline Flush) 10 ml FLUSH Q12HR PRN PRN Reason: Keep Vein Open Temazepam (Restoril) 15 mg PO BEDTIME PRN PRN Reason: Insomnia Last Admin: 09/08/20 21:32 Dose: 15 mg Documented by: Discontinued Medications Al Hydroxide/Mg Hydroxide (Gi Cocktail) 30 ml PO ONETIME ONE Stop: 09/08/20 12:30 Last Admin: 09/08/20 12:40 Dose: 30 ml Documented by: Aspirin (Aspirin) 324 mg CHEW ONETIME ONE Stop: 09/08/20 12:59 Last Admin: 09/08/20 13:01 Dose: 324 mg Documented by: Enoxaparin Sodium (Lovenox) 80 mg SUBCUT Q12H [facility] Last Admin: 09/08/20 14:16 Dose: 80 mg Documented by: Famotidine (Pepcid) 40 mg IVPUSH ONETIME ONE Stop: 09/08/20 11:02 Last Admin: 09/08/20 11:13 Dose: 40 mg Documented by: Levofloxacin/Dextrose 500 mg/ (Premix) 100 mls @ 100 mls/hr IV ONETIME ONE Stop: 09/08/20 12:44 Last Admin: 09/08/20 11:51 Dose: 100 mls/hr Documented by: Iopamidol (Isovue-370 (76%)) 100 ml IVPUSH ONETIME ONE Stop: 09/08/20 13:05 Last Admin: 09/08/20 13:30 Dose: 100 ml Documented by: Pantoprazole Sodium (Protonix Iv) 40 mg IVPUSH ONETIME ONE Stop: 09/08/20 11:02 Last Admin: 09/08/20 11:16 Dose: 40 mg Documented by: Ticagrelor (Brilinta) 180 mg PO ONETIME ONE Stop: 09/08/20 12:59 Last Admin: 09/08/20 13:02 Dose: 180 mg Documented by: - Exam Quality Assessment: DVT Prophylaxis (Low-dose subcu Lovenox). No: Supplemental Oxygen, Central Line/PICC, Urine Catheter, Skin Breakdown, Restraints General: Alert, Oriented, Cooperative, No Acute Distress HEENT: Pupils Equal, Pupils Reactive, EOMI, Mucous Membr. Moist/Byng. No: Scleral Icterus Neck: Supple, Trachea Midline, No JVD, No Thyromegaly, +2 Carotid Pulse wo Bruit. No: Lymphadenopathy Lungs: Clear to Auscultation, Normal Respiratory Effort. No: Rub Cardiovascular: Regular Rate, Regular Rhythm, No Murmurs. No: Gallops, Rubs GI/Abdominal Exam: Normal Bowel Sounds, Soft, Non-Tender, No Organomegaly, No Distention, No Abnormal Bruit, No Mass, Other (Mild ecchymosis and subcutaneous Lovenox sites). No: Guarding (Male) Exam: Deferred Back Exam: Normal Inspection, Full Range of Motion. No: CVA Tenderness (L), CVA Tenderness (R), Muscle Spasm Extremities: Normal Inspection, Normal Range of Motion, Non-Tender, No Pedal Edema, Normal Capillary Refill. No: Akash's Sign Peripheral Pulses: 2+: Radial (L), Radial (R), Dorsalis Pedis (L), Dorsalis Pedis (R) Skin: Warm, Dry, Intact, Ecchymosis (As above) Neurological: No New Focal Deficit Psy/Mental Status: Alert, Normal Affect, Normal Mood. No: Agitated, Hallucinations, Withdrawal Symptoms #1 Interpretation EKG Date: 09/09/20 Time: 07:20 Rhythm: NSR (With resolution of previous mild sinus bradycardia) Rate (Beats/Min): 77 Alsen: LAD-Left Alsen Deviation (Extended left cardiac axis which is a change from previous right cardiac axis) P-Wave: Present QRS: Wide (0.11 seconds representing probable repolarization changes improved from last EKG. Left ventricular hypertrophy by voltage) ST-T: Normal (Resolution of previous T wave inversions in 1, 2, and aVL) QT: Normal [place]/PQ Interval: 0.15 seconds with poor R wave progression in the anterior leads Comparison: Change From Previous EKG (As above since 09/08/2020) EKG Interpretation Comments: 1. No acute ischemic changes with resolution of previous lateral wall cardiac ischemia-? Previous incorrect lead placement 2. Left ventricular hypertrophy by voltage 3. Repolarization changes Sepsis Event Note - Evaluation Sepsis Screening Result: No Definite Risk - Focused Exam Vital Signs: Vital Signs Temp Temp Pulse Resp BP Pulse Ox 09/09/20 07:38 36.6 C 89 16 117/78 96 09/09/20 04:00 36.9 C 82 18 119/75 96 09/09/20 00:00 37.7 C 73 18 124/75 95 - Problem List & Annotations (1) Abdominal pain SNOMED Code(s): 72227091 Code(s): R10.9 - UNSPECIFIED ABDOMINAL PAIN Status: Acute Priority: High Current Visit: Yes Onset Date: 09/07/20 Qualifiers: Abdominal location: epigastric Qualified Code(s): R10.13 - Epigastric pain Annotation/Comment:: Symptoms improved in the emergency room with high-dose IV Pepcid and IV Protonix with somewhat refractory symptoms and additional green lizard required. Suspected acute cholecystitis/cholelithiasis was confirmed with CT scans as above with normal amylase and lipase on admission and remained normal on 09/09 despite gallstone in the neck. Note significant leukocytosis with no fever on admission with subsequent fever during the initial 24 hours of hospitalization.. Lactic acid level was normal on admission with no clinical evidence of sepsis. IV Levaquin initiated in the emergency room with initiation of IV Flagyl shortly after admission. Improved leukocytosis on 09/09, however additional IV antibiotic therapy is required with patient to be changed from observation status to acute care. Telephone consultation at 9:30 AM with Esdras Horowitz MD, general surgeon on 09/09, with Dr. Horowitz comfortable to perform a laparoscopic cholecystectomy in this facility on 09/15. He is aware of patient's cardiac abnormalities as below. Subsequent cardiology consultation at 10:[address] Garland, plugging machine operator at [facility], who does not feel that the patient needs any further cardiac work-up, including Cardiolite stress test, echocardiogram, etc., prior to planned laparoscopic cholecystectomy as above since this is a relatively low risk surgery and the patient had excellent exercise tolerance, etc. prior to admission. Patient should be discharged on oral Levaquin and Flagyl, which should be continued until surgery as above. (2) Atypical chest pain SNOMED Code(s): 064190938 Code(s): R07.89 - OTHER CHEST PAIN Status: Acute Priority: High Current Visit: Yes Onset Date: 09/08/20 Annotation/Comment:: Note evidence of lateral wall cardiac ischemia with no true chest pain or anginal type symptoms prior to arrival to this facility. Note that ASA and Brilinta were given after EKG was obtained and prior to admission. Secondary to d-dimer elevation patient also received subcutaneous Lovenox at the cardiac/VTE dose with venous Doppler studies and a CTA of the chest conducted shortly after admission with results as above. Standard rule out PR orders were negative with resolution of the EKG changes on 09/09. Note cardiology consultation on 09/09 as above with further c onsultation and/or work-up depending on his clinical course. (3) CHF (congestive heart failure) SNOMED Code(s): 38350206 Code(s): I50.9 - HEART FAILURE, UNSPECIFIED Status: Acute Priority: High Current Visit: Yes Onset Date: 09/08/20 Qualifiers: Heart failure type: unspecified Heart failure chronicity: acute Qualified Code(s): I50.9 - Heart failure, unspecified Annotation/Comment:: Note BNP elevation. Initiated IV Lasix with caution shortly after admission. Consider echocardiogram on an outpatient basis with evidence of left ventricular hypertrophy by EKG. Echocardiogram could be performed on 09/13 in this facility with possible preliminary results from the sheet metal technician, however final report will likely not be available prior to the above scheduled surgery. (4) D-dimer, elevated SNOMED Code(s): 922174873 Code(s): R79.89 - OTHER SPECIFIED ABNORMAL FINDINGS OF BLOOD CHEMISTRY Status: Acute Priority: High Current Visit: Yes Onset Date: 09/08/20 Annotation/Comment:: As above (5) Osteoarthritis SNOMED Code(s): 780988224 Code(s): M19.90 - UNSPECIFIED OSTEOARTHRITIS, UNSPECIFIED SITE Status: Chronic Priority: Medium Current Visit: Yes Qualifiers: Osteoarthritis location: multiple joints Osteoarthritis type: primary Qualified Code(s): M89.49 - Other hypertrophic osteoarthropathy, multiple sites Annotation/Comment:: Stable by history. (6) Peptic reflux disease SNOMED Code(s): 904294624 Code(s): K21.9 - GASTRO-ESOPHAGEAL REFLUX DISEASE WITHOUT ESOPHAGITIS Status: Chronic Priority: Medium Current Visit: Yes Annotation/Comment:: High-dose IV Pepcid and IV Protonix given in the ER and continue during this hospitalization as above. (7) Hyperlipidemia SNOMED Code(s): 28470277 Code(s): E78.5 - HYPERLIPIDEMIA, UNSPECIFIED Status: Chronic Priority: Medium Current Visit: Yes Qualifiers: Hyperlipidemia type: unspecified Qualified Code(s): E78.5 - Hyperlipidemia, unspecified Annotation/Comment:: Currently under therapy with excellent lipid panel on 09/09. Glycosylated hemoglobin was also normal at 5.9% on 09/09. (8) Hypertension SNOMED Code(s): 80788371 Code(s): I10 - ESSENTIAL (PRIMARY) HYPERTENSION Status: Chronic Priority: Medium Current Visit: Yes Qualifiers: Hypertension type: essential hypertension Qualified Code(s): I10 - Essential (primary) hypertension Annotation/Comment:: Currently under therapy. Blood pressure stable in the emergency room and during this hospitalization. - Problem List Review Problem List Initiated/Reviewed/Updated: Yes - My Orders Last 24 Hours: My Active Orders 09/08/20 11:01 Abdomen Series w Chest 1V [CR] Stat CULTURE URINE [RM] Stat Sodium Chloride 0.9% [Saline Flush] 10 ml FLUSH ASDIRECTED PRN Peripheral IV Insertion Adult [OM.PC] Stat Resuscitation Status Stat 09/08/20 11:03 Cardiac Monitoring [RC] Q2HR 09/08/20 11:40 Nitroglycerin [Nitrostat] 0.4 mg SL ONETIME STA 09/08/20 12:55 Venous Doppler Lwr Ext Bi [US] Urgent 09/08/20 12:56 Abdomen Pelvis w Cont [CT] Stat Chest PE [Ang Chest] [CT] Stat 09/08/20 13:18 Sodium Chloride 0.9% [Saline Flush] 10 ml FLUSH Q12HR PRN Temazepam [Restoril] 15 mg PO BEDTIME PRN 09/08/20 13:19 Antiembolic Devices [RC] Communication Order [RC] DAILY Height and Weight [RC] DAILY Intake and Output Strict [RC] Oxygen Therapy [RC] .PRN Pulse Oximetry [RC] .PRN Up With Assistance [RC] DAILY Vaccines to be Administered [RC] .DISCHARGE OCCULT BLOOD DIAGNOSTIC [OP] Stat Antiembolic Hose [OM.PC] Routine CHF Questionnaire [COMM] Routine DVT/VTE Prophylaxis Reflex [OM.PC] Routine GM Immunization Reflex [OM.PC] Click to Edit 09/08/20 13:30 H PYLORI STOOL ANTIGEN [MREF] ONETIME 09/08/20 14:00 Acetaminophen [TylenoL] 650 mg PO Q4H PRN Furosemide [Lasix] 40 mg IVPUSH Q8H metroNIDAZOLE/Normal Saline [Flagyl 500 MG in NS 100 ML] 500 mg Premix Bag 1 bag IV Q8H 09/08/20 18:00 Potassium Chloride [Klor-Con M20] 20 meq PO TID 09/08/20 18:23 Influenza Vaccine Charge [RC] .DISCHARGE 09/08/20 20:00 Ezetimibe [Zetia] 10 mg PO BEDTIME Pharmacy to Dose - InFluenza V [Pharmacy to Dose - InFluenza Vaccine] 1 each IM ONETIME ONE lisinopriL [Prinivil] 5 mg PO BEDTIME 09/08/20 20:10 Communication Order [RC] Q4HR Vital Signs [RC] Q4HR 09/09/20 05:11 EKG Documentation Completion [RC] ASDIRECTED 09/09/20 06:00 Enoxaparin [Lovenox] 80 mg SUBCUT BID@0600,1800 09/09/20 Breakfast Fluid Restriction [DIET] - Assessment Assessment:: As above - Plan Plan:: As above. Extensive precautions were given to the patient, who is in agreement with the treatment plan. The patient will require about 1-2 days of inpatient/acute care secondary to multiple health problems as above. Destiny franklin physician assumes care in the a.m.
[2020-09-09] MEDS: Ezetimibe 10 MG Tab PO SCH (19:38)
[2020-09-09] MEDS: Lisinopril 5 MG Tab PO SCH (19:39)
[2020-09-10] MEDS: Furosemide 40 MG/4 ML VIAL IVPUSH SCH (05:29)
[2020-09-10] MEDS: Enoxaparin 80 MG/0.8 ML Syringe SUBCUT SCH (05:29)
[2020-09-10] MEDS: metroNIDAZOLE/Normal Saline 500 MG in Premix Bag 1 BAG IV SCH (05:30)
[2020-09-10] MEDS: Sodium Chloride 0.9% 10 ML Syringe FLUSH PRN (05:30)
[2020-09-10] MEDS: Potassium Chloride 20 MEQ Tab.ER PO SCH ×2 (08:48→12:28)
[2020-09-10] MEDS ORDERED: FLU Vacc QS2020-21 36MOS UP/PF 60 MCG/0.5 ML Syringe IM ONE (11:30)
--- NOTE | 2020-09-10 17:02 | PCM.DCSUM1 ---
Discharge Summary - Hospital Course Brief History: Admitted for further evaluation of chest and abdominal pain. - Discharge Data Discharge Date: 09/10/20 Discharge Disposition: Home, Self-Care 01 Condition: Good - Referral to Home Health Primary Care Physician: Nicki Shane PA-C - Discharge Diagnosis/Problem(s) (1) Acute cholecystitis SNOMED Code(s): 47921443 ICD Code: K81.0 - ACUTE CHOLECYSTITIS Status: Acute Priority: High Pro blem Details: Confirmed by CT. Also noted to have stones present. Much improved. Tolerating PO intake well. Surgery scheduled for next week. (2) Abdominal pain SNOMED Code(s): 99524562 ICD Code: R10.9 - UNSPECIFIED ABDOMINAL PAIN Status: Acute Priority: High Onset Date: 09/07/20 Problem Details: Symptoms improved in the emergency room with high-dose IV Pepcid and IV Protonix with somewhat refractory symptoms and additional green lizard required. Suspected acute cholecystitis/cholelithiasis was confirmed with CT scans as above with normal amylase and lipase on admission and remained normal on 09/09 despite gallstone in the neck. Note significant leukocytosis with no fever on admission with subsequent fever during the initial 24 hours of hospitalization.. Lactic acid level was normal on admission with no clinical evidence of sepsis. IV Levaquin initiated in the emergency room with initiation of IV Flagyl shortly after admission. Improved leukocytosis on 09/09, however additional IV antibiotic therapy is required with patient to be changed from observation status to acute care. Telephone consultation at 9:30 AM with Esdras Horowitz MD, general surgeon on 09/09, with Dr. Horowitz comfortable to perform a laparoscopic cholecystectomy in this facility on 09/15. He is aware of patient's cardiac abnormalities as below. Subsequent cardiology consultation at 10:[address] Garland, tax adjuster at [facility], who does not feel that the patient needs any further cardiac work-up, including Cardiolite stress test, echocardiogram, etc., prior to planned laparoscopic cholecystectomy as above since this is a relatively low risk surgery and the patient had excellent exercise tolerance, etc. prior to admission. Patient should be discharged on oral Levaquin and Flagyl, which should be continued until surgery as above. Qualifiers: Abdominal location: epigastric Qualified Code(s): R10.13 - Epigastric pain (3) Atypical chest pain SNOMED Code(s): 450405692 ICD Code: R07.89 - OTHER CHEST PAIN Status: Acute Priority: High Onset Date: 09/08/20 Problem Details: Note evidence of lateral wall cardiac ischemia with no true chest pain or anginal type symptoms prior to arrival to this facility. Note that ASA and Brilinta were given after EKG was obtained and prior to admission. Secondary to d-dimer elevation patient also received subcutaneous Lovenox at the cardiac/VTE dose with venous Doppler studies and a CTA of the chest conducted shortly after admission with results as above. Standard rule out OK orders were negative with resolution of the EKG changes on 09/09. Note cardiology consultation on 09/09. (4) CHF (congestive heart failure) SNOMED Code(s): 24172022 ICD Code: I50.9 - HEART FAILURE, UNSPECIFIED Status: Acute Priority: High Onset Date: 09/08/20 Problem Details: Note BNP elevation. Follow up with PCP. Qualifiers: Heart failure type: unspecified Heart failure chronicity: acute Qualified Code(s): I50.9 - Heart failure, unspecified (5) D-dimer, elevated SNOMED Code(s): 942942313 ICD Code: R79.89 - OTHER SPECIFIED ABNORMAL FINDINGS OF BLOOD CHEMISTRY Status: Acute Priority: High Onset Date: 09/08/20 Problem Details: As above (6) Hyperlipidemia SNOMED Code(s): 23272593 ICD Code: E78.5 - HYPERLIPIDEMIA, UNSPECIFIED Status: Chronic Priority: Medium Problem Details: Currently under therapy with excellent lipid panel on 09/09. Glycosylated hemoglobin was also normal at 5.9% on 09/09. Qualifiers: Hyperlipidemia type: unspecified Qualified Code(s): E78.5 - Hyperlipidemia, unspecified (7) Hypertension SNOMED Code(s): 26229217 ICD Code: I10 - ESSENTIAL (PRIMARY) HYPERTENSION Status: Chronic Priority: Medium Problem Details: Currently under therapy. Blood pressure stable in the emergency room and during this hospitalization. Qualifiers: Hypertension type: essential hypertension Qualified Code(s): I10 - Essential (primary) hypertension (8) Osteoarthritis SNOMED Code(s): 452772659 ICD Code: M19.90 - UNSPECIFIED OSTEOARTHRITIS, UNSPECIFIED SITE Status: Chronic Priority: Medium Problem Details: Stable by history. Qualifiers: Osteoarthritis location: multiple joints Osteoarthritis type: primary Qualified Code(s): M89.49 - Other hypertrophic osteoarthropathy, multiple sites (9) Peptic reflux disease SNOMED Code(s): 402441221 ICD Code: K21.9 - GASTRO-ESOPHAGEAL REFLUX DISEASE WITHOUT ESOPHAGITIS Status: Chronic Priority: Medium Problem Details: Stable during stay. - Patient Summary/Data Consults: Consultations 09/09/20 10:55 Consult to Physician [CONS] Routine Hospital Course: Patient started on antibiotics. Pain rapidly improved. Pain free at this time. Tolerating fluid/bland diet well today. He would like to go home. No fevers. WBC improving. Cholecystectomy scheduled for next . Precautions reviewed. To follow up as needed if acute problems develop. - Patient Instructions Diet: Anti-Inflammatory (low fat/bland) Activity: As Tolerated Driving: May Drive Today Showering/Bathing: May Shower Notify Provider of: Fever, Increased Pain, Nausea and/or Vomiting Other/Special Instructions: Covid testing next week as set up with [facility]. Surgery next as scheduled. [place]/low fat diet until surgery. Follow up with your primary provider after surgery to go over any other concerns. Call us if you have questions. Return to ER if you have sudden worsening problems. - Discharge Plan *PRESCRIPTION DRUG MONITORING PROGRAM REVIEWED*: Not Applicable *COPY OF PRESCRIPTION DRUG MONITORING REPORT IN PATIENT SHIRA: Not Applicable Prescriptions/Med Rec: metroNIDAZOLE [Flagyl] 500 mg PO DAILY #7 tablet levoFLOXacin [Levaquin] 500 mg PO DAILY #7 tab Home Medications: Home Meds Acetaminophen [Tylenol] 650 mg PO Q4HR PRN 09/08/20 [History] Ezetimibe 10 mg PO BEDTIME 09/08/20 [History] Ibuprofen 400 mg PO Q6HR PRN 09/08/20 [History] lisinopriL [Lisinopril] 5 mg PO BEDTIME 09/08/20 [History] levoFLOXacin [Levaquin] 500 mg PO DAILY #7 tab 09/10/20 [Rx] metroNIDAZOLE [Flagyl] 500 mg PO DAILY #7 tablet 09/10/20 [Rx] Forms: ED Department Discharge Referrals: Nicki Shane PA-C [Primary Care Provider] - - Discharge Summary/Plan Comment DC Time >30 min.: No - General Info Date of Service: 09/10/20 Admission Dx/Problem (Free Text: 1. Abdominal pain with probable acute holecystitis 2. Atypical chest pain 3. D-dimer elevation 4. CHF Subjective Update: Patient feels well. Currently pain-free. Tolerating food/fluids. Wants to go home. Functional Status: Reports: Pain Controlled, Tolerating Diet, Ambulating, Urinating. Denies: New Symptoms Numeric/FACES Score: 0 - Review of Systems General: Reports: No Symptoms HEENT: Reports: No Symptoms Pulmonary: Reports: No Symptoms Cardiovascular: Reports: No Symptoms Gastrointestinal: Reports: No Symptoms Genitourinary: Reports: No Symptoms Musculoskeletal: Reports: No Symptoms Skin: Reports: No Symptoms, Dryness Psychiatric: Reports: No Symptoms - Patient Data Vitals - Most Recent: Last Vital Signs Temp 37.0 C 09/10/20 05:38 Pulse 77 09/10/20 05:38 Resp 16 09/10/20 05:38 BP 109/77 09/10/20 05:38 Pulse Ox 96 09/10/20 05:38 Weight - Most Recent: 90.174 kg I&O - Last 24 hours: Intake & Output 09/10/20 09/10/20 09/10/20 06:59 14:59 22:59 Intake Total 350 360 Balance 350 360 Lab Results - Last 24 hrs: Laboratory Results - last 24 hr 09/10/20 09/10/20 09/10/20 Range/Units 07:35 07:35 07:35 WBC 13.2 H (4.0-10.2) K/uL RBC 5.76 H (4.33-5.41) M/uL Hgb 17.0 H (13.1-16.8) g/dL Hct 50.0 H (39.0-49.0) % MCV 86.8 (84.0-98.0) fL MCH 29.5 (28.2-33.3) pg MCHC 34.0 (31.7-36.0) g/dL RDW 14.9 H (11.2-14.1) % Plt Count 287 (150-350) K/uL Neut % (Auto) 64.2 (45.0-80.0) % Lymph % (Auto) 18.1 (10.0-50.0) % Ward % (Auto) 11.2 (2.0-14.0) % Eos % (Auto) 6.0 H (0.0-5.0) % Baso % (Auto) 0.5 (0.0-2.0) % Neut # (Auto) 8.46 H (1.40-7.00) K/uL Lymph # (Auto) 2.39 (0.50-3.50) K/uL Ward # (Auto) 1.47 H (0.00-1.00) K/uL Eos # (Auto) 0.79 H (0.00-0.50) K/uL Baso # (Auto) 0.06 (0.00-0.20) K/uL D-Dimer, Quantitative 1770 H (0-400) ng/mL Sodium 135 L (136-145) mmol/L Potassium 4.0 (3.5-5.1) mmol/L Chloride 98 (98-107) mmol/L Carbon Dioxide 24.3 (21.0-32.0) mmol/L BUN 26 H (7-18) mg/dL Creatinine 1.23 H (0.51-1.17) mg/dL Est Cr Clr Drug Dosing 62.80 mL/min Estimated GFR (MDRD) 59 mL/min Glucose 129 H (74-106) mg/dL Calcium 9.0 (8.5-10.1) mg/dL Total Bilirubin 1.5 H (0.2-1.0) mg/dL AST 17 (15-37) U/L ALT 23 (12-78) U/L Alkaline Phosphatase 58 (46-116) IU/L Creatine Kinase 84 (26-308) U/L Creatine Kinase Index 0.6 (0.0-2.5) % CK-MB (CK-2) 0.50 (0.00-3.60) ng/mL Troponin I 0.000 (0.000-0.056) ng/mL NT-Pro-B Natriuret Pep 128 H (0-125) pg/mL Total Protein 7.8 (6.4-8.2) g/dL Albumin 3.8 (3.4-5.0) g/dL Amylase 32 (25-115) U/L Lipase 70 L (73-393) U/L MELANIA Results - Last 24 hrs: Microbiology 09/08/20 11:01 Urine Culture - Final Urine, Clean Catch NO GROWTH AFTER 2 DAYS 09/08/20 19:00 Stool Occult Blood (MELANIA) - Final Stool / Feces NEGATIVE OCCULT BLOOD REFERENCE RANGE: NEGATIVE Med Orders - Current: Current Medications Discontinued Medications Acetaminophen (Tylenol) 650 mg PO Q4H PRN PRN Reason: Pain Al Hydroxide/Mg Hydroxide (Gi Cocktail) 30 ml PO ONETIME ONE Stop: 09/08/20 12:30 Last Admin: 09/08/20 12:40 Dose: 30 ml Documented by: Aspirin (Aspirin) 324 mg CHEW ONETIME ONE Stop: 09/08/20 12:59 Last Admin: 09/08/20 13:01 Dose: 324 mg Documented by: Ezetimibe (Zetia) 10 mg PO BEDTIME [facility] Last Admin: 09/09/20 19:38 Dose: 10 mg Documented by: Enoxaparin Sodium (Lovenox) 80 mg SUBCUT Q12H [facility] Last Admin: 09/08/20 14:16 Dose: 80 mg Documented by: Enoxaparin Sodium (Lovenox) 80 mg SUBCUT BID@0600,1800 [facility] Last Admin: 09/10/20 05:29 Dose: 80 mg Documented by: Famotidine (Pepcid) 40 mg IVPUSH ONETIME ONE Stop: 09/08/20 11:02 Last Admin: 09/08/20 11:13 Dose: 40 mg Documented by: Furosemide (Lasix) 40 mg IVPUSH Q8H [facility] Last Admin: 09/10/20 05:29 Dose: 40 mg Documented by: Levofloxacin/Dextrose 500 mg/ (Premix) 100 mls @ 100 mls/hr IV ONETIME ONE Stop: 09/08/20 12:44 Last Admin: 09/08/20 11:51 Dose: 100 mls/hr Documented by: Metronidazole 500 mg/ Premix 100 mls @ 100 mls/hr IV Q8H [facility] Last Admin: 09/10/20 05:30 Dose: 100 mls/hr Documented by: Influenza Virus Vaccine (Pharmacy To Dose - Influenza Vaccine) 1 each IM ONETIME ONE Stop: 09/08/20 20:01 Influenza Virus Vaccine (Afluria Quad 2020-21 (3yr Up)) 60 mcg IM .ONCE ONE Stop: 09/10/20 11:31 Last Admin: 09/10/20 12:27 Dose: 60 mcg Documented by: Iopamidol (Isovue-370 (76%)) 100 ml IVPUSH ONETIME ONE Stop: 09/08/20 13:05 Last Admin: 09/08/20 13:30 Dose: 100 ml Documented by: Lisinopril (Prinivil) 5 mg PO BEDTIME [facility] Last Admin: 09/09/20 19:39 Dose: 5 mg Documented by: Nitroglycerin (Nitrostat) 0.4 mg SL ONETIME STA Stop: 09/09/20 11:41 Last Admin: 09/08/20 11:46 Dose: 0.4 mg Documented by: Pantoprazole Sodium (Protonix Iv) 40 mg IVPUSH ONETIME ONE Stop: 09/08/20 11:02 Last Admin: 09/08/20 11:16 Dose: 40 mg Documented by: Potassium Chloride (Klor-Con M20) 20 meq PO TID [facility] Last Admin: 09/10/20 12:28 Dose: 20 meq Documented by: Sodium Chloride (Saline Flush) 10 ml FLUSH ASDIRECTED PRN PRN Reason: Keep Vein Open Last Admin: 09/10/20 05:30 Dose: 10 ml Documented by: Sodium Chloride (Saline Flush) 10 ml FLUSH Q12HR PRN PRN Reason: Keep Vein Open Last Admin: 09/09/20 21:53 Dose: 10 ml Documented by: Temazepam (Restoril) 15 mg PO BEDTIME PRN PRN Reason: Insomnia Last Admin: 09/08/20 21:32 Dose: 15 mg Documented by: Ticagrelor (Brilinta) 180 mg PO ONETIME ONE Stop: 09/08/20 12:59 Last Admin: 09/08/20 13:02 Dose: 180 mg Documented by: - Exam General: Reports: Alert, Oriented, Cooperative, No Acute Distress HEENT: Reports: Pupils Equal, Pupils Reactive, EOMI, Mucous Membr. Moist/[place] Neck: Reports: Supple Lungs: Reports: Clear to Auscultation, Normal Respiratory Effort Cardiovascular: Reports: Regular Rate, Regular Rhythm GI/Abdominal Exam: Normal Bowel Sounds, Soft, Non-Tender, No Distention (Male) Exam: Deferred Rectal (Males) Exam: Deferred Back Exam: Reports: Normal Inspection Extremities: Normal Inspection, Non-Tender, No Pedal Edema, Normal Capillary Refill Skin: Reports: Warm, Dry Neurological: Reports: No New Focal Deficit Psy/Mental Status: Reports: Alert, Normal Affect, Normal Mood #1 Interpretation EKG Date: 09/10/20 Time: 07:19 Rhythm: NSR Rate (Beats/Min): 78 [place]: Normal P-Wave: Present QRS: Normal ST-T: Normal QT: Normal
== END 2020-09-10 13:05 | disposition home or self-care (01) ==
LOC: LL.ED 11:00 → UNDOADMOB 13:05 → LL.MS 13:05
PROVIDERS: ADMIT Family Medicine; ATTEND Family Medicine
DX: K81.0 Acute cholecystitis (principal); R07.89 Other chest pain; I11.0 Hypertensive heart disease with heart failure; I50.9 Heart failure, unspecified; Z23 Encounter for immunization; R79.89 Other specified abnormal findings of blood chemistry; E78.5 Hyperlipidemia, unspecified; K21.9 Gastro-esophageal reflux disease without esophagitis; M89.49 Other hypertrophic osteoarthropathy, multiple sites; Z79.899 Other long term (current) drug therapy; Z88.0 Allergy status to penicillin
CPT/HCPCS: 36415; 71275; 74022; 74177; 80053; 80061; 81001; 82150; 82272; 82550; 82553; 83036; 83605; 83690; 83735; 83880; 84484; 84550; 85025; 85379; 85610; 85730; 87086; 87338; 90471; 90686; 93005; 93970; 96365; 96366; 96367; 96375; 96376; 99285; A9270; C9113; G0378; J1650; J1940; J1956; J3490; Q9967; 99217; 99219; 99225; G0008

== ENCOUNTER 2020-09-15 07:49 | Day surgery (SDC) | payer BC ==
[2020-09-15] MEDS ORDERED: Sodium Chloride 0.9% 10 ML Syringe FLUSH PRN (08:00)
[2020-09-15] MEDS ORDERED: Lactated Ringers 1,000 ML IV SCH (08:00)
[2020-09-15] MEDS ORDERED: Midazolam 1 MG/ML 2 ML SDV ONE ×3 (08:22→09:06)
[2020-09-15] MEDS ORDERED: fentaNYL 250 MCG/5 ML SDV ONE ×2 (08:22→09:06)
[2020-09-15] MEDS ORDERED: Propofol 200 MG/20 ML SDV ONE ×3 (08:23→09:06)
[2020-09-15] MEDS ORDERED: Rocuronium 100 MG/10 ML MDV ONE (09:06)
[2020-09-15] MEDS ORDERED: Succinylcholine 200 MG/10 ML MDV ONE (09:06)
[2020-09-15] MEDS ORDERED: Dexamethasone 10 MG/ML SDV ONE (09:06)
[2020-09-15] MEDS ORDERED: Glycopyrrolate 0.2 MG/ML SDV ONE (09:06)
[2020-09-15] MEDS ORDERED: Ondansetron 4 MG/2 ML SDV ONE (09:06)
[2020-09-15] MEDS ORDERED: Neostigmine Methylsulfate 10 MG/10 ML MDV ONE (09:06)
[2020-09-15] MEDS ORDERED: ceFAZolin 1 GM Vial ONE (09:06)
--- NOTE | 2020-09-15 09:21 | PCM.PN ---
- General Info Date of Service: 09/15/20 - Review of Systems Systems Review Comment:: 64-year-old male with recent admission for attack of cholecystitis. CT scan is documented cholelithiasis. He is here for cholecystectomy. He says he has felt well since discharge 5 days ago with no recent abdominal pain or difficulty eating. His recent history and physical is reviewed. Diagnostic studies including laboratory tests are reviewed. There is no significant changes noted on evaluation today and he is stable to proceed. I have discussed the proposed cholecystectomy with the patient. Expectations and instructions reviewed. Risks and possible complications including but not limited to bleeding infection injury to other organs and possible need to convert to laparotomy are reviewed. He agrees to proceed. - Patient Data Vitals - Most Recent: Last Vital Signs Temp 97.6 F 09/15/20 08:49 Pulse 66 09/15/20 08:49 Resp 20 09/15/20 08:49 BP 112/75 09/15/20 08:49 Pulse Ox 96 09/15/20 08:49 Weight - Most Recent: 89.811 kg Med Orders - Current: Current Medications Lactated Ringer's (Ringers, Lactated) 1,000 mls @ 125 mls/hr IV ASDIRECTED [facility] Last Admin: 09/15/20 08:47 Dose: 125 mls/hr Documented by: Sodium Chloride (Saline Flush) 10 ml FLUSH ASDIRECTED PRN PRN Reason: Keep Vein Open Discontinued Medications Fentanyl (Sublimaze) Confirm Administered Dose 250 mcg .ROUTE .STK-MED ONE Stop: 09/15/20 08:23 Midazolam HCl (Versed 1 Mg/Ml) Confirm Administered Dose 2 mg .ROUTE .STK-MED ONE Stop: 09/15/20 08:23 Midazolam HCl (Versed 1 Mg/Ml) Confirm Administered Dose 2 mg .ROUTE .STK-MED ONE Stop: 09/15/20 08:25 Propofol (Diprivan 20 Ml) Confirm Administered Dose 200 mg .ROUTE .STK-MED ONE Stop: 09/15/20 08:24 Propofol (Diprivan 20 Ml) Confirm Administered Dose 400 mg .ROUTE .STK-MED ONE Stop: 09/15/20 08:26 Sepsis Event Note - Focused Exam Vital Signs: Vital Signs Temp Pulse Resp BP Pulse Ox 09/15/20 08:49 97.6 F 66 20 112/75 96 - Problem List Review Problem List Initiated/Reviewed/Updated: Yes - My Orders Last 24 Hours: My Active Orders 09/15/20 Breakfast Nothing Per Oral Diet [DIET] 09/15/20 08:00 Patient Status [ADT] Routine Antiembolic Devices [RC] PER UNIT ROUTINE Peripheral IV Care [RC] . DIRECTED RT Incentive Spirometry [RC] Q2HWA Verify Patient Consent Obtain [RC] ASDIRECTED Lactated Ringers [Ringers, Lactated] 1,000 ml IV ASDIRECTED Sodium Chloride 0.9% [Saline Flush] 10 ml FLUSH ASDIRECTED PRN Antiembolic Hose [OM.PC] Routine Peripheral IV Insertion Adult [OM.PC] Routine Sequential Compression Device [OM.PC] Routine - Assessment Assessment:: Cholelithiasis with history of cholecystitis - Plan Plan:: Cholecystectomy
[2020-09-15] MEDS ORDERED: Bupivacaine 0.25%/EPINEPHrine 1:200,000 30 ML SDV INFILT ONE (09:45)
--- NOTE | 2020-09-15 12:00 | PCM.OPNOTE ---
- General Post-Op/Procedure Note Date of Surgery/Procedure: 09/15/20 Operative Procedure(s): Laparoscopic cholecystectomy Findings: Gallbladder with multiple large stones and severe acute and chronic inflammation Pre Op Diagnosis: Symptomatic cholelithiasis Post-Op Diagnosis: Acute and chronic cholecystitis with cholelithiasis Anesthesia Technique: General ET Tube Primary Surgeon: Esdras Horowitz Pathology: Gallbladder with stones EBL in mLs: 50 Complications: None Condition: Good
--- NOTE | 2020-09-15 13:26 | OR ---
Date of Procedure: 09/15/2020 REFERRING PROVIDERS: Dr. Ellison and Nicki Shane PA-C. PREOPERATIVE DIAGNOSIS: Symptomatic cholelithiasis. POSTOPERATIVE DIAGNOSIS: Acute on chronic cholecystitis with cholelithiasis. OPERATION PERFORMED: Laparoscopic cholecystectomy. INDICATIONS FOR SURGERY: This 64-year-old male has been having symptoms of postprandial upper abdominal pain over the past year. He had a recent severe prolonged attack, which required hospitalization. CT scan at that time documented cholelithiasis with some thickening of the gallbladder wall. FINDINGS: The patient's gallbladder was distended with a markedly thickened wall and severe chronic and acute inflammation. The adjacent liver and other intraabdominal organs appeared unremarkable as viewed laparoscopically. The gallbladder contained multiple large stones. DESCRIPTION OF PROCEDURE: The patient was taken to the operating room. He was given general endotracheal anesthesia and the abdomen was sterilely prepped and draped. An infraumbilical stab wound incision was made. Through this, a Veress needle was inserted and pneumoperitoneum via this needle to a pressure of 15 mmHg was achieved with carbon dioxide. The Veress needle was then replaced with a 12 mm trocar into which the 10 mm 0 degree laparoscopic camera was inserted. Under direct visualization, 5 mm trocars were placed in the subxiphoid midline and in 2 areas of the right abdomen. All trocar sites were infiltrated with Marcaine prior to incision. Intraabdominal inspection was carried out and attention was turned to the gallbladder. The gallbladder was distended and had multiple stones, so the liquid contents of the gallbladder were aspirated to allow the gallbladder to be more easily manipulated. It was able to be retracted superiorly and anteriorly, and there were dense fatty tissue adhesions adherent to the undersurface of the gallbladder. These were carefully taken down with blunt dissection and cautery. As the dissection continued toward the base of the gallbladder, the cystic artery was identified and was isolated and doubly clipped and divided. Additional careful persistent dissection was required, and eventually with this dissection, the cystic duct was able to be clearly identified. The cystic duct was then doubly clipped and divided near the gallbladder with great care being used to avoid any injury to the common bile duct. The gallbladder was then dissected free from the undersurface of the liver using the hook cautery device. This dissection was difficult and was prolonged. The gallbladder wall was thick and there was intense inflammation in the area of dissection. The gallbladder wall was entered and several large stones escaped from the gallbladder during this dissection. Eventually, the gallbladder was able to be completely from the liver, and it was placed into an Endo retrieval bag, and after extending the fascial incision slightly, it was able to be removed from the abdominal cavity. Reinspection of the operative region was carried out and multiple large stones were noted. These and other stone fragments were carefully removed until all stones appeared to be retrieved with no significant residual contamination. The operative region was copiously irrigated and Avitene was placed into the gallbladder bed to assure hemostasis. With no sign of bleeding and after all stones appeared to be removed and with no evidence of any other complication, the trocars were removed under direct visualization and the pneumoperitoneum was evacuated. The fascia of the umbilical trocar site was closed with a running 0 Vicryl suture. The wounds were irrigated with Betadine and saline solution. Skin incisions approximated with interrupted 4-0 Vicryl in a subcuticular stitch. Steri-Strips and benzoin were applied followed by antibiotic ointment and sterile dressings. The patient was awakened, extubated, and taken from the operating room in satisfactory condition. ESTIMATED BLOOD LOSS: 50 mL. COMPLICATIONS: None. PROGNOSIS: Good. KEIRY Horowitz MD /[id number]
== END 2020-09-15 16:30 | disposition home or self-care (01) ==
LOC: LL.SDS 07:49
PROVIDERS: ATTEND Surgery
DX: K80.12 Calculus of gallbladder with acute and chronic cholecystitis without obstruction (principal); I10 Essential (primary) hypertension; Z79.899 Other long term (current) drug therapy; Z01.812 Encounter for preprocedural laboratory examination; Z20.828 Contact with and (suspected) exposure to other viral communicable diseases
CPT/HCPCS: 00790; 47562; 87635; J0330; J0690; J1100; J2250; J2405; J2704; J2710; J3010; J3490; J7120; U0002

== ENCOUNTER 2021-09-21 09:21 | Emergency (ER) | payer BC, MEDICARE ==
[2021-09-21] MEDS ORDERED: Sodium Chloride 0.9% 10 ML Syringe FLUSH PRN (09:33)
--- NOTE | 2021-09-21 09:33 | EDM.PDOC ---
ED HPI GENERAL MEDICAL PROBLEM - General Chief Complaint: Cardiovascular Problem Stated Complaint: irregular heartbeat Time Seen by Provider: 09/21/21 09:25 Source of Information: Reports: Patient History Limitations: Reports: No Limitations - History of Present Illness INITIAL COMMENTS - FREE TEXT/NARRATIVE: Patient comes emergency department today from home with complaints of palpitations. This patient for the past week has complained of increasing heart rate at home and palpitations. Feels like his heart is constantly beating and sometimes irregular. 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 He does not take any diuretics for this. He has not had any change in his medications recently. For about the past week he has felt like his heart is pounding very fast. He has had no syncope. No generalized weakness. He does have some shortness of breath with physical exertion although this is at his baseline and has not gotten worse over the past week. He has had no pain in his chest. No difficulty breathing otherwise. No cough or congestion. No fever no chills. No abdominal pain nausea or vomiting. No hematuria dysuria urinary frequency. No black tarry stools diarrhea. No rash sores or lesions. No edema to his lower extremities. He has a history of hypertension hyperlipidemia obesity. He does complain of some intermittent funny sensation in his arms that he does not relate his pain kind of a tingling sensation. No change in the functionality of his extremities. - Related Data Allergies Allergy/AdvReac Type Severity Reaction Status Date / Time Penicillins Allergy Rash Verified 09/21/21 09:39 Home Meds: Home Meds Acetaminophen [Tylenol] 650 mg PO Q4HR PRN 09/14/20 [History] Ezetimibe 10 mg PO BEDTIME 09/14/20 [History] Ibuprofen 400 mg PO Q6HR PRN 09/14/20 [History] lisinopriL [Lisinopril] 5 mg PO BEDTIME 09/15/20 [History] Past Medical History HEENT History: Reports: None Other HEENT History: Patient wears reading glasses. Chronic bilateral tinnitus since his 20s. Cardiovascular History: Reports: High Cholesterol, Hypertension Respiratory History: Reports: None Gastrointestinal History: Reports: Cholelithiasis Other Gastrointestinal History: Benign colonic polyps diagnosed by colonoscopy in 2014 as below. Genitourinary History: Reports: None Other Genitourinary History: Probable left-sided urolithiasis on 05/06/2009 with spontaneous passage. Musculoskeletal History: Reports: Arthritis, Back Pain, Chronic, Fracture, Osteoarthritis, Other (See Below) Other Musculoskeletal History: Left-sided clavicular fracture at age 13. Mild scoliosis with previous of borderline right-sided radiculopathy at L4 with multivessel degenerative disease and some lateral L4 right compartment compression with no surgery to this point. Neurological History: Reports: None Psychiatric History: Reports: None Endocrine/Metabolic History: Reports: None Hematologic History: Reports: None Immunologic History: Reports: None Oncologic (Cancer) History: Reports: None Dermatologic History: Reports: None - Infectious Disease History Infectious Disease History: Reports: Chicken Pox, Mumps - Past Surgical History Head Surgeries/Procedures: Reports: None HEENT Surgical History: Reports: LASIK, Oral Surgery, Other (See Below) Other HEENT Surgeries/Procedures: LASIK in about 2013. [place] teeth extraction x4 in the with additional tooth extractions. Cardiovascular Surgical History: Reports: None Respiratory Surgical History: Reports: None GI Surgical History: Reports: Colonoscopy, Polypectomy, Other (See Below) Other GI Surgeries/Procedures: Colonoscopy in about 2014 with multiple polyp removals as above. Male Surgical History: Reports: Circumcision, Other (See Below) Other Male Surgeries/Procedures: Circumcision as an infant. Endocrine Surgical History: Reports: None Neurological Surgical History: Reports: None Musculoskeletal Surgical History: Reports: Arthroscopic Knee, Arthroscopic Procedure, Other (See Below) Other Musculoskeletal Surgeries/Procedures:: Right knee arthroscopic for torn meniscus in about 1987 with repeat procedure in about 2002. Oncologic Surgical History: Reports: None Dermatological Surgical History: Reports: None - Past Imaging History Past Imaging History: Reports: CAT Scan (CT of the brain on 02/10/2018. CT of the abdomen and pelvis on 05/09/2009.), MRI (MRI of the lumbar spine on 04/25/2020.) Social & Family History - Family History HEENT: Reports: None Cardiac: Reports: PVD/COD, Other (See Below) Other Cardiac Family History: Brother with carotid occlusive disease with stent placement at age 66. Respiratory: Reports: None : Reports: None OBGYN: Reports: None Musculoskeletal: Reports: None Neurological: Reports: TIA, Other (See Below) Other Neurological Family History: Brother with TIA at age 66 secondary to carotid occlusive disease Psychiatric: Reports: None Endocrine/Metabolic: Reports: None Hematologic: Reports: None Immunologic: Reports: None Dermatologic: Reports: None Oncologic: Reports: Prostate, Other (See Below) Other Oncologic Family History: Brother with history of prostate cancer and subsequent prostatectomy at about age 65. - Caffeine Use Caffeine Use: Reports: Soda (1 soda every 2 weeks). Denies: Coffee, Energy Drinks, Tea - Living Situation & Occupation Living situation: Reports: (Second in 1990, 2 children from previous marriage with child from this marriage.), (First in .) Occupation: Employed ([employer] etc[employer] ED ROS GENERAL - Review of Systems Review Of Systems: Comprehensive ROS is negative, except as noted in HPI. ED EXAM, GENERAL - Physical Exam Exam: See Below Exam Limited By: No Limitations General Appearance: Alert, WD/WN, No Apparent Distress Eye Exam: Left Eye: EOMI, PERRL Ears: Normal External Exam, Normal TMs Nose: Normal Inspection, Normal Mucosa Throat/Mouth: Normal Inspection, Normal Lips, Normal Teeth, Normal Oropharynx, Normal Voice, No Airway Compromise Head: Atraumatic, Normocephalic Neck: Normal Inspection, Supple, Non-Tender, Full Range of Motion Respiratory/Chest: No Respiratory Distress, Lungs Clear, Normal Breath Sounds, No Accessory Muscle Use, Chest Non-Tender Cardiovascular: Normal Peripheral Pulses, Regular Rate, Rhythm, Tachycardia (Quite tachycardic in the rate of the mid 140s. With occasional PVCs. No murmur. This appears to be regular.) Peripheral Pulses: 2+: Radial (L), Radial (R), Posterior Tibial (L), Posterior Tibial (R), Dorsalis Pedis (L), Dorsalis Pedis (R) GI/Abdominal: Normal Bowel Sounds, Soft, Non-Tender (Male) Exam: Deferred Rectal (Males) Exam: Deferred Back Exam: Normal Inspection, Full Range of Motion Extremities: Normal Inspection, Normal Range of Motion, Non-Tender, No Pedal Edema, Normal Capillary Refill Neurological: Alert, Oriented, Normal Cognition, No Motor/Sensory Deficits Psychiatric: Normal Affect, Normal Mood Skin Exam: Warm, Dry, Intact, Normal Color, No Rash Lymphatic: No Adenopathy Course - Vital Signs Last Recorded V/S: Last Vital Signs Temp 97 F 10/28/21 09:21 Pulse 59 L 09/21/21 10:53 Resp 18 09/21/21 10:53 BP 123/70 09/21/21 10:53 Pulse Ox 98 09/21/21 10:53 - Orders/Labs/Meds Orders: Active Orders 24 hr Category Date Time Status Chest 2V [CR] Urgent Exams 09/21/21 09:33 Taken Peripheral IV Insertion Adult [OM.PC] Stat Oth 09/21/21 09:33 Ordered EKG 12 Lead [EK] Stat Ther 09/21/21 09:34 Ordered EKG 12 Lead [EK] Stat Ther 09/21/21 10:44 Ordered Labs: Laboratory Tests 09/21/21 09/21/21 09/21/21 Range/Units 09:35 09:35 09:40 WBC 6.7 (4.0-10.2) K/uL RBC 5.35 (4.33-5.41) M/uL Hgb 15.7 (13.1-16.8) g/dL Hct 46.5 (39.0-49.0) % MCV 86.9 (84.0-98.0) fL MCH 29.3 (28.2-33.3) pg MCHC 33.8 (31.7-36.0) g/dL RDW 14.1 (11.2-14.1) % Plt Count 268 (150-350) K/uL Neut % (Auto) 56.1 (45.0-80.0) % Lymph % (Auto) 26.9 (10.0-50.0) % Cottle % (Auto) 8.4 (2.0-14.0) % Eos % (Auto) 7.8 H (0.0-5.0) % Baso % (Auto) 0.8 (0.0-2.0) % Neut # (Auto) 3.74 (1.40-7.00) K/uL Lymph # (Auto) 1.79 (0.50-3.50) K/uL [place]le # (Auto) 0.56 (0.00-1.00) K/uL Eos # (Auto) 0.52 H (0.00-0.50) K/uL Baso # (Auto) 0.05 (0.00-0.20) K/uL Sodium 139 (136-145) mmol/L Potassium 4.2 (3.5-5.1) mmol/L Chloride 107 (98-107) mmol/L Carbon Dioxide 23.1 (21.0-32.0) mmol/L Anion Gap 8.9 (7-15) meq/L BUN 19 H (7-18) mg/dL Creatinine 1.10 (0.51-1.17) mg/dL Est Cr Clr Drug Dosing 69.13 mL/min Estimated GFR (MDRD) > 60 mL/min Glucose 158 H (70-99) mg/dL Lactic Acid 2.1 H (0.4-2.0) mmol/L Calcium 8.8 (8.5-10.1) mg/dL Total Bilirubin 1.3 H (0.2-1.0) mg/dL AST 20 (15-37) U/L ALT 33 (12-78) U/L Alkaline Phosphatase 69 (46-116) IU/L Troponin I High Sens 7 (<=76) ng/L C-Reactive Protein < 0.2 (<=0.9) mg/dL NT-Pro-B Natriuret Pep 68 (0-125) pg/mL Total Protein 6.9 (6.4-8.2) g/dL Albumin 3.9 (3.4-5.0) g/dL TSH, Ultra Sensitive 1.340 (0.358-3.740) mIU/mL Specimen Type Urine Color Urine Appearance Urine pH (5.0-9.0) Ur Specific [place] (1.005-1.030) Urine Protein (NEGATIVE) mg/dL Urine Glucose (UA) (NEGATIVE) mg/dL Urine Ketones (NEGATIVE) mg/dL Urine Occult Blood (NEGATIVE) Urine Nitrite (NEGATIVE) Urine Bilirubin (NEGATIVE) Urine Urobilinogen (0.2-1.0) E.U./dL Ur Leukocyte Esterase (NEGATIVE) 09/21/21 Range/Units 10:40 WBC (4.0-10.2) K/uL RBC (4.33-5.41) M/uL Hgb (13.1-16.8) g/dL Hct (39.0-49.0) % MCV (84.0-98.0) fL MCH (28.2-33.3) pg MCHC (31.7-36.0) g/dL RDW (11.2-14.1) % Plt Count (150-350) K/uL Neut % (Auto) (45.0-80.0) % Lymph % (Auto) (10.0-50.0) % [place] % (Auto) (2.0-14.0) % Eos % (Auto) (0.0-5.0) % Baso % (Auto) (0.0-2.0) % Neut # (Auto) (1.40-7.00) K/uL Lymph # (Auto) (0.50-3.50) K/uL [place] # (Auto) (0.00-1.00) K/uL Eos # (Auto) (0.00-0.50) K/uL Baso # (Auto) (0.00-0.20) K/uL Sodium (136-145) mmol/L Potassium (3.5-5.1) mmol/L Chloride (98-107) mmol/L Carbon Dioxide (21.0-32.0) mmol/L Anion Gap (7-15) meq/L BUN (7-18) mg/dL Creatinine (0.51-1.17) mg/dL Est Cr Clr Drug Dosing mL/min Estimated GFR (MDRD) mL/min Glucose (70-99) mg/dL Lactic Acid (0.4-2.0) mmol/L Calcium (8.5-10.1) mg/dL Total Bilirubin (0.2-1.0) mg/dL AST (15-37) U/L ALT (12-78) U/L Alkaline Phosphatase (46-116) IU/L Troponin I High Sens (<=76) ng/L C-Reactive Protein (<=0.9) mg/dL NT-Pro-B Natriuret Pep (0-125) pg/mL Total Protein (6.4-8.2) g/dL Albumin (3.4-5.0) g/dL TSH, Ultra Sensitive (0.358-3.740) mIU/mL Specimen Type Urinvoid Urine Color Yellow Urine Appearance Clear Urine pH 6.0 (5.0-9.0) Ur Specific [place] 1.015 (1.005-1.030) Urine Protein Negative (NEGATIVE) mg/dL Urine Glucose (UA) Negative (NEGATIVE) mg/dL Urine Ketones Negative (NEGATIVE) mg/dL Urine Occult Blood Negative (NEGATIVE) Urine Nitrite Negative (NEGATIVE) Urine Bilirubin Negative (NEGATIVE) Urine Urobilinogen 0.2 (0.2-1.0) E.U./dL Ur Leukocyte Esterase Negative (NEGATIVE) Meds: Medications Discontinued Medications Generic Name Dose Route Start Last Admin Trade Name Freq PRN Reason Stop Dose Admin Lactated Ringer's 1,000 mls @ 1,000 mls/hr 09/21/21 09:34 09/21/21 09:41 Ringers, Lactated IV 09/21/21 10:33 1,000 mls/hr .BOLUS ONE Administration Sodium Chloride 10 ml 09/21/21 09:33 Sodium Chloride 0.9% 10 Ml Syringe FLUSH ASDIRECTED PRN Keep Vein Open - Radiology Interpretation Free Text/Narrative:: Chest x-ray per radiology shows no acute findings. - Re-Assessments/Exams Free Text/Narrative Re-Assessment/Exam: IV was established labs were drawn. 1 L LR wide open. Initial EKG shows a regular sinus tachycardia in the mid 140s to 150s. Laboratory evaluation with a normal CBC, CMP with a BUN of 19 normal creatinine 1.1, glucose 158 normal liver enzymes. C-reactive protein less than 0.2. proBNP 68. TSH 1.34 Urinalysis is noninfectious appearing. After the patient had about 500 mils of fluid the patient spontaneously converted to a normal sinus rhythm at a rate of 63. Repeat EKG shows a normal sinus rhythm small amount of left axis deviation. No ST elevation or depression when reviewed reviewed extemporaneously by myself. All the symptoms that the patient had prior to arrival have resolved. I am not finding any identified electrolyte abnormality or thyroid disorder causing his sinus tachycardia. He does not have a fever nor is he in severe pain. I wonder if this is not somewhat of an aspect of dehydration or just spontaneous development of sinus tachycardia. His symptomology is completely resolved while he is in the emergency department. He has been monitored over the next hour for any recurrence of his tachycardia. We will discharge him home at this time with close follow-up with primary care as well as Holter monitor. Make sure that he is well-hydrated. I am unsure of what causes a sinus tachycardia but his symptoms is completely resolved after the fluid administration. He is comfortable with this plan his questions are answered. Departure - Departure Time of Disposition: 11:17 Disposition: Home, Self-Care 01 Clinical Impression: Sinus tachycardia, Heart palpitations Referrals: Nicik Shane PA-C [Primary Care Provider] - Forms: ED Department Discharge Additional Instructions: Make sure and drink plenty of fluids over the next few days. Return to the ED if new or worsening symptoms. Especially if syncope or passing out. Chest pain or weakness. Holter monitor. Sep 25 to be placed. Results to your PCP. Contact your PCP today and make appointment with them for follow up after the holter monitor results. Sepsis Event Note (ED) - Evaluation Sepsis Screening Result: No Definite Risk - Focused Exam Vital Signs: Vital Signs Temp Pulse Resp BP Pulse Ox 09/21/21 10:53 59 L 18 123/70 98 09/21/21 10:38 65 18 111/83 99 09/21/21 10:32 65 20 108/68 99 09/21/21 10:10 67 21 H 114/89 99 09/21/21 09:40 146 H 21 H 116/80 98 09/21/21 09:30 145 H 18 125/89 98 09/21/21 09:21 97 F 146 H 20 125/89 98 - My Orders Last 24 Hours: My Active Orders 09/21/21 09:33 Chest 2V [CR] Urgent Peripheral IV Insertion Adult [OM.PC] Stat 09/21/21 09:34 EKG 12 Lead [EK] Stat 09/21/21 10:44 EKG 12 Lead [EK] Stat - Assessment/Plan Last 24 Hours: My Active Orders 09/21/21 09:33 Chest 2V [CR] Urgent Peripheral IV Insertion Adult [OM.PC] Stat 09/21/21 09:34 EKG 12 Lead [EK] Stat 09/21/21 10:44 EKG 12 Lead [EK] Stat
[2021-09-21] MEDS ORDERED: Lactated Ringers 1,000 ML IV ONE (09:34)
[2021-09-21 10:17] LABS: ANION GAP 8.9 meq/L (7-15); CHLORIDE,CL 107 mmol/L (98-107); SODIUM,NA 139 mmol/L (136-145)
--- NOTE | 2021-09-21 14:46 | PCM.EKG ---
#1 Interpretation EKG Date: 09/21/21 Time: 09:44 Rhythm: Other (Sinus tachy) Rate (Beats/Min): 158 P-Wave: Present QRS: Normal ST-T: Normal QT: Normal Comparison: NA - No Prior EKG #2 Interpretation EKG Date: 09/21/21 Time: 11:11 Rhythm: NSR Rate (Beats/Min): 63 [place]: LAD-Left [place] Deviation P-Wave: Present QRS: Normal ST-T: Normal QT: Normal Comparison: Change From Previous EKG (Resolution of Sinus tachycardia.)
== END 2021-09-21 11:42 | disposition home or self-care (01) ==
LOC: LL.ED 09:21
DX: R00.2 Palpitations (principal); R00.0 Tachycardia, unspecified; I10 Essential (primary) hypertension; Z88.0 Allergy status to penicillin; Z79.899 Other long term (current) drug therapy
CPT/HCPCS: 36415; 71046; 80053; 81003; 83605; 83880; 84443; 84484; 85025; 86140; 93005; 93010; 99284; 99285-25; J7120